=== PATIENT | female | born 1940 | race Caucasian/White ===

== ENCOUNTER → 2017-02-06 | Outpatient (CLI) | payer OTHER ==
[~2017-02-06] MED LIST: ACET-1311 PO; CALC500C3 PO; DIPH-437 PO; LISI-461 PO; LISI-725 PO; MULT-506 PO; ONDA8TAB6 PO; OXYC-57 PO; PSYL48.59 PO; PSYL55.43 PO; SIMV40TA2 PO
[2017-02-06 12:37] LABS: HEMATOCRIT 41.8 % (37-47); MEAN CELL VOLUME 91.7 fL (80-100); MEAN CORPUSCULAR HEMOGLOBIN 29.6 pg (25-34); MEAN CORPUSCULAR HGB CONC 32.3 g/dl (32-36); MEAN PLATELET VOLUME 11.8 fL (7.4-10.4); PLATELET COUNT 277 K/uL (130-400); RED BLOOD COUNT 4.56 M/uL (4.2-5.4); WHITE BLOOD COUNT 6.66 K/uL (4.8-10.8)
[2017-02-06 13:10] LABS: CALCIUM 10.4 mg/dl (8.5-10.1)
[2017-02-06 13:12] LABS: ALT/SGPT 21 U/L (12-78); AST/SGOT 18 U/L (15-37); BLOOD UREA NITROGEN 19 mg/dl (7-18); BUN/CREATININE RATIO 24.1 (10-20); CARBON DIOXIDE 28 mmol/L (21-32); CHLORIDE 100 mmol/L (98-107); CHOLESTEROL 233 mg/dl (0-200); CREATININE 0.79 mg/dl (0.60-1.20); GLUCOSE 87 mg/dl (70-99); SODIUM 136 mmol/L (136-145); TRIGLYCERIDES 217 mg/dl (0-150); VERY LOW DENSITY LIPOPROT CALC 43 mg/dl
[2017-02-06 13:18] LABS: ALB/GLOB RATIO 1.2 (0.9-2); ALKALINE PHOSPHATASE 77 U/L (45-117); CHOLESTEROL/HDL RATIO 3.2; HDL CHOLESTEROL 73 mg/dl; LDL CHOLESTEROL CALCULATED 117 mg/dl
== END | disposition home or self-care (01) ==
LOC: C.LABBFT 08:13
PROVIDERS: ATTEND Physician Assistant Medical
DX: E78.00 Pure hypercholesterolemia, unspecified (principal)

== ENCOUNTER → 2017-04-14 | Outpatient (CLI) | payer OTHER ==
[~2017-04-14] MED LIST changes: -LISI-725 PO; -MULT-506 PO; -ONDA8TAB6 PO; -OXYC-57 PO; -PSYL48.59 PO
--- NOTE | 2017-04-14 11:14 | DIAGNOSTIC IMAGING REPORT ---
CT OF THE ABDOMEN AND PELVIS WITHOUT CONTRAST CLINICAL HISTORY: Left flank pain. Evaluate for stones. COMPARISON STUDY: CT of the abdomen and pelvis February 02, 2016. TECHNIQUE: Axial images of the abdomen and pelvis were obtained without IV contrast. Images were reviewed in the axial, sagittal, and coronal planes. A dose lowering technique was utilized adhering to the principles of ALARA. FINDINGS: A few small right middle lobe and right lower lobe nodules are unchanged since CT of July 13, 2009. These are benign given stability. No ureteral, ureteral or bladder calculi are present. A few water attenuation hepatic lesions as well as a water attenuation left renal lesion were shown to represent cysts on prior contrast enhanced exams. There is no hydronephrosis or hydroureter. There are several left-sided parapelvic cysts. No biliary or pancreatic ductal dilatation is present. There is no evidence for a bowel obstruction. This extensive colonic diverticulosis, most pronounced within the sigmoid colon. There is moderate wall thickening of the splenic flexure of the colon and proximal to mid descending colon with mild pericolonic infiltration. There is no free air or abscess. There are associated colonic diverticula. There is a small amount of fluid within the pelvis. Suspected uterine fibroids are again noted. There is extensive atherosclerotic plaque of the abdominal aorta which is normal in caliber. No pneumatosis, free air or portal venous gas is present. IMPRESSION: 1. Moderate colonic wall thickening of the splenic flexure and proximal descending colon with mild pericolonic infiltration. The findings could reflect acute diverticulitis or a nonspecific colitis which could be infectious or ischemic in etiology. No free air or abscess. Trace fluid within the pelvis. 2. No urinary calculi or hydronephrosis. 3. Hepatic and left renal cysts. Electronically signed by: Santo Yoder M.D. 04/14/2017 11:13 AM Dictated Date/Time: 04/14/2017 10:51 AM
== END | disposition home or self-care (01) ==
LOC: C.CTS 10:21
PROVIDERS: ATTEND Physician Assistant Medical
DX: R10.9 Unspecified abdominal pain (principal); N28.1 Cyst of kidney, acquired

== ENCOUNTER → 2017-04-25 | Outpatient (CLI) | payer OTHER | END | disposition home or self-care (01) | LOC: C.LABBFT 08:18 | PROVIDERS: ATTEND Physician Assistant Medical | DX: R19.7 Diarrhea, unspecified (principal) ==

== ENCOUNTER → 2017-05-11 | Outpatient (CLI) | payer OTHER ==
--- NOTE | 2017-05-11 08:45 | DIAGNOSTIC IMAGING REPORT ---
CHEST 2 VIEWS ROUTINE CLINICAL HISTORY: R06.09 Dyspnea on [id number] COMPARISON STUDY: 02/12/2016 FINDINGS: The bones soft tissues and hemidiaphragms are normal. The cardiomediastinal silhouette is normal. The lungs are clear. The pulmonary vasculature is normal. IMPRESSION: Negative chest. The above report was generated using voice recognition software. It may contain grammatical, syntax or spelling errors. Electronically signed by: Tom Marshall M.D. 05/11/2017 8:44 AM Dictated Date/Time: 05/11/2017 8:44 AM
== END | disposition home or self-care (01) ==
LOC: C.RAD1850 08:15
PROVIDERS: ATTEND Internal Medicine
DX: R06.09 Other forms of dyspnea (principal)

== ENCOUNTER → 2017-05-11 | Outpatient (CLI) | payer OTHER ==
[2017-05-11 12:29] LABS: BASO % 0.4 %; BASO ABS # 0.02 K/uL (0-0.2); COMPLETE YES; EOS % 2.3 %; HEMATOCRIT 37.6 % (37-47); IG% 0.2 %; LYMPH % 28.5 %; LYMPH ABS # 1.48 K/uL (1.2-3.4); MEAN CORPUSCULAR HEMOGLOBIN 29.8 pg (25-34); MEAN CORPUSCULAR HGB CONC 32.7 g/dl (32-36); MEAN PLATELET VOLUME 11.4 fL (7.4-10.4); MONO % 9.6 %; PLATELET COUNT 250 K/uL (130-400); RED BLOOD COUNT 4.13 M/uL (4.2-5.4)
== END | disposition home or self-care (01) ==
LOC: C.LABBFT 07:30
PROVIDERS: ATTEND Internal Medicine
DX: R06.09 Other forms of dyspnea (principal)

== ENCOUNTER 2017-07-23 10:10 | Inpatient (IN) | payer OTHER ==
[~2017-07-23] VITALS: Ht 149.9 cm; Wt 70.7 kg
[2017-07-23] MEDS ORDERED: LISI-725 PO (10:34)
[2017-07-23] MEDS ORDERED: MULT-506 PO (10:34)
[2017-07-23] MEDS ORDERED: PSYL48.59 PO (10:34)
[2017-07-23] MEDS ORDERED: ONDANSETRON INJ 2 MG/ML 2 ML VIAL IV STA (10:43)
[2017-07-23] MEDS: MoRPHine SULFATE 4 MG/ML 1 ML CARP\\VIAL IV PRN ×2 (11:03→11:43)
--- NOTE | 2017-07-23 11:17 | DIAGNOSTIC IMAGING REPORT ---
LEFT SHOULDER 2 VIEWS CLINICAL HISTORY: Fall with left shoulder pain. FINDINGS: 2 views of the left shoulder are obtained. No prior studies are available for comparison at the time of dictation. The skeletal structures are osteopenic. There is an impacted fracture of the left humeral neck with a large distracted fragment of the humeral head. No dislocation is seen. Productive degenerative change is noted at the acromioclavicular joint. Overlying soft tissue edema is identified. The left lung parenchyma is clear as imaged. There is atherosclerotic calcification of the thoracic aorta. IMPRESSION: Osteopenia with an impacted fracture of the humeral neck and a large distracted fragment of the humeral head. Electronically signed by: Bennie Hutson M.D. 07/23/2017 11:16 AM Dictated Date/Time: 07/23/2017 11:14 AM
[2017-07-23] MEDS ORDERED: SODIUM CHLORIDE 0.9% 1000ML 1,000 ML IV STA (11:41)
[2017-07-23] MEDS ORDERED: MAGNESIUM HYDROXIDE SUSP 30 ML UDC PO PRN (12:30)
[2017-07-23] MEDS ORDERED: ZOLPIDEM TARTRATE 5 MG TAB PO PRN (12:30)
[2017-07-23] MEDS ORDERED: ALUMINUM/MAGNESIUM SUSP 30 ML UDC PO PRN (12:30)
--- NOTE | 2017-07-23 12:42 | HISTORY & PHYSICAL EXAMINATION ---
DATE OF ADMISSION: 07/23/2017 HISTORY OF PRESENT ILLNESS: A 77-year-old female presents with acute pain and dysfunction, left shoulder after a fall. Seen in the Emergency Room at [facility] and documented a displaced left proximal humerus fracture. PAST MEDICAL HISTORY: Hypertension, peptic ulcer disease, hyperlipidemia. She has a known history of heart murmur. PAST SURGICAL HISTORY: Bilateral knee replacements. FAMILY HISTORY: Her parents . Father had CAD and ND. Brother with Down syndrome. SOCIAL HISTORY: She lives with her at home. She is retired. ALLERGIES: ASPIRIN, RELATED TO RISK FOR BLEEDING ULCER, RANITIDINE, TETRACYCLINE. HOME MEDICATIONS: Acetaminophen q. 4 hours p.r.n., diphenhydramine 500 mg/25 mg 1 p.o. at bedtime p.r.n. sleep, calcium carbonate 500 mg p.r.n. heartburn, lisinopril 20 mg tab q.a.m., multivitamin 1 daily, Metamucil 1 teaspoon p.r.n. constipation, Zocor 40 mg q.p.m. REVIEW OF SYSTEMS: Noncontributory. PHYSICAL EXAMINATION: EXTREMITIES: Demonstrates that she has swelling in her left shoulder. No ecchymosis. Significant pain with any range of motion of the left shoulder. NEUROLOGICAL: Her distal neurological exam, left upper extremity is all intact including intact radial pulse and neuromotor exam. She has no other extremity trauma. HEAD AND NECK: Atraumatic. Cranial nerves intact. No tenderness in the C-spine. HEART: Has a regular rate and rhythm, but she does have a systolic murmur grade 2. ABDOMEN: Benign, soft, nontender. Normal bowel sounds. X-rays left shoulder demonstrates a head splitting, displaced left proximal humerus fracture. She has a large subacromial spur off the acromion. With extensive spurring like this it is typical that the patient will have a chronic rotator cuff tear. ASSESSMENT: Head splitting left proximal humerus fracture likely preexisting chronic rotator cuff tear. PLAN: CT scan to further identify fracture pattern and plan is to proceed with a fracture reverse total shoulder replacement with repair of the tuberosities and autograft bone grafting of the tuberosities as part of the procedure. We assessed risks and benefits. The patient was consented for procedure. This will likely be performed pending medical clearance tomorrow afternoon or Monday.
[2017-07-23 12:56] LABS: PROTHROMBIN TIME (PATIENT) 10.5 SECONDS (9.0-12.0)
[2017-07-23 13:08] LABS: CALCIUM 10.2 mg/dl (8.5-10.1); CREATININE 0.79 mg/dl (0.60-1.20); POTASSIUM 3.6 mmol/L (3.5-5.1)
--- NOTE | 2017-07-23 13:17 | DIAGNOSTIC IMAGING REPORT ---
SINGLE VIEW CHEST CLINICAL HISTORY: Generalized weakness. Preoperative examination. Humeral fracture. FINDINGS: An AP, portable, upright chest radiograph is compared to study dated 05/11/2017. The examination is degraded by portable technique and patient rotation. The cardiomediastinal silhouette is unremarkable. There is atherosclerotic calcification of the thoracic ureter. Chronic interstitial thickening is similar to previous. There are low lung volumes. No airspace consolidation, large pleural effusion, or pneumothorax is seen. The skeletal structures are osteopenic. A left humeral fracture is partially imaged. Degenerative change and scoliosis are seen in the thoracic spine. IMPRESSION: 1. No active disease in the chest. 2. A left humeral fracture is again seen. Electronically signed by: Bennie Hutson M.D. 07/23/2017 1:16 PM Dictated Date/Time: 07/23/2017 1:15 PM
[2017-07-23 13:18] LABS: THYROID STIMULATING HORMONE 1.29 uIu/ml (0.300-4.500)
[2017-07-23 13:33] LABS: BASO % 0.1 %; BASO ABS # 0.02 K/uL (0-0.2); COMPLETE YES; EOS % 0.1 %; HEMATOCRIT 37.6 % (37-47); IG% 0.3 %; LYMPH % 6.1 %; LYMPH ABS # 0.92 K/uL (1.2-3.4); MEAN CORPUSCULAR HEMOGLOBIN 30.6 pg (25-34); MEAN PLATELET VOLUME 11.4 fL (7.4-10.4); MONO % 4.6 %; NEUT % 88.8 %; PLATELET COUNT 255 K/uL (130-400); RED BLOOD COUNT 4.18 M/uL (4.2-5.4); WHITE BLOOD COUNT 15.07 K/uL (4.8-10.8)
[2017-07-23 13:35] VITALS: BP 157/68; PULSE 70; TEMP 37.3; O2SAT 100; Ht 149.9 cm; Wt 70.7 kg
--- NOTE | 2017-07-23 13:39 | DIAGNOSTIC IMAGING REPORT ---
CT SCAN OF THE LEFT SHOULDER WITHOUT IV CONTRAST: CLINICAL HISTORY: Left humeral fracture. COMPARISON STUDY: Radiographs of the left shoulder dated 07/23/2017. TECHNIQUE: CT scan of the left shoulder is performed from the lower neck to the humeral shaft. Images are reviewed in the axial, sagittal, and coronal planes. IV contrast was not administered for this examination. 3-D reformats are created and assessed. A dose lowering technique was utilized adhering to the principles of ALARA. CT DOSE: 294.81 mGy.cm FINDINGS: The skeletal structures are osteopenic. There is an impacted fracture of the left humeral neck, as well as a comminuted fracture of the humeral head. There is hemorrhage around the humeral head fragments, with large posteriorly distracted fragments involving the greater tuberosity. There is mild inferior subluxation of the humeral head without clear evidence of dislocation. No additional fracture is seen. The scapula appears intact. Productive degenerative change is identified at the acromioclavicular joint. Soft tissue edema is seen overlying the fracture. No intramuscular hematoma is identified. No left axillary adenopathy is seen. IMPRESSION: Osteopenia with an impacted and comminuted fracture involving the left humeral head and neck as above with distracted fragments. See discussion. Dictated: 07/23/2017 1:03 PM Transcribed: 07/23/2017 1:39 PM Iban Electronically signed by: Bennie Hutson M.D. 07/23/2017 1:42 PM Dictated Date/Time: 07/23/2017 1:03 PM
[2017-07-23] MEDS ORDERED: HydrALAZINE HCL 20 MG/ML VIAL IV. PRN (13:45)
--- NOTE | 2017-07-23 13:51 | Medical Consult ---
Consultation Date of Consultation: Jul 23, 2017. Attending Physician: Mike Leonard M.D. Reason for Consultation: Perop clearance History of Present Illness Patient is a 77 y/o female, with PMHx of heart murmur, HTN, HLD, and h/o PUD, who was admitted by orthopedics service due to a fall resulting in L proximal humerus fracture. The hospitalist team was consulted for preop clearance. Patient states she was locking her door this AM before heading to [facility] when she either tripped over her feet or the carpet and landed on her L shoulder. She denies head injury. She denies lightheadedness/dizziness, syncope or LOC- she states she remembers the entire event. Currently her pain is well controlled after receiving IV Morphine- states pain is 5/10. She admits to h/o heart murmur since the age of 8, but denies any other cardiac history. Denies h/ o CAD, SC, CHF, TIA, CVA, PE, or DVT. She denies h/o DM. Patient denies any fever, chills, sweats, lightheadedness, dizziness, vision changes, CP, palpitations, edema, SOB, wheezing, cough, abdominal pain, nausea, vomiting, diarrhea, urinary symptoms, melena, numbness/tingling, weakness, anxiety/ depression, active bleeding, or new skin discoloration/changes. Past Medical/Surgical History Past medical history: HTN HLD h/o PUD heart murmur Surgical history: Bilateral knee replacement Family History Father- CAD, SC Brother- Down syndrome Social History Smoking Status: Former Smoker Drug Use: none Marital Status: Housing Status: lives with family Occupation Status: retired Allergies Coded Allergies: Ranitidine (Verified Allergy, Unknown, `, 07/23/17) Tetracycline (Verified Allergy, Unknown, `, 07/23/17) Aspirin (Verified Adverse Reaction, Mild, ULCERS, 07/23/17) PATIENT SAYS SHE CANNOT TAKE THIS BECAUSE SHE HAS PERIPHERAL BLEEDING ULCERS Home Medications Current Inpatient Medications Medications (Trade) Dose Ordered Sig/Alex Route Start Time Stop Time Status Last Admin Dose Admin Morphine Sulfate (MoRPHine SULFATE INJ) 4 mg Q10M PRN IV 07/23/17 10:45 08/06/17 10:44 07/23/17 11:43 4 MG Sodium Chloride 1,000 ml @ 125 mls/hr Q8H STAT IV 07/23/17 11:41 07/23/17 19:40 Oxycodone/ Acetaminophen (Percocet 5-325mg Tab) `1-2 TABS FOR PAIN `1 TAB... Q4H PRN PO 07/23/17 12:30 08/06/17 12:29 Zolpidem Tartrate (Ambien Tab) 5 mg HSZ PRN PO 07/23/17 12:30 08/22/17 12:29 Metoclopramide HCl (Reglan Inj) 10 mg Q6H PRN IV 07/23/17 12:30 08/22/17 12:29 Ondansetron HCl (Zofran Inj) 4 mg Q6H PRN IV 07/23/17 12:30 08/22/17 12:29 Al Hydroxide/Mg Hydroxide (Maalox Susp) 30 ml Q6H PRN PO 07/23/17 12:30 08/22/17 12:29 Docusate Sodium (coLACE CAP) 100 mg BID PO 07/23/17 21:00 08/22/17 20:59 UNV Pantoprazole Sodium (Protonix Tab) 40 mg QAM PO 07/24/17 09:00 08/23/17 08:59 UNV Magnesium Hydroxide (Milk Of Magnesia Susp) 30 ml Q6H PRN PO 07/23/17 12:30 08/22/17 12:29 Dextrose/Sodium Chloride 1,000 ml @ 15 mls/hr Q24H IV 07/23/17 12:21 08/22/17 12:20 UNV Cefazolin Sodium 1000 mg/Dextrose 55 ml @ 100 mls/hr PREOP IV 07/24/17 06:00 07/24/17 06:32 UNV Lisinopril (Zestril Tab) 20 mg QAM PO 07/24/17 09:00 08/23/17 08:59 UNV Multivitamins (Multivitamin Tab) 1 tab DAILY PO 07/24/17 09:00 08/23/17 08:59 UNV Simvastatin (Zocor Tab) 40 mg QPM PO 07/23/17 21:00 08/22/17 20:59 UNV Current Inpatient Medications Current Inpatient Medications Medications (Trade) Dose Ordered Sig/Alex Route Start Time Stop Time Status Last Admin Dose Admin Morphine Sulfate (MoRPHine SULFATE INJ) 4 mg Q10M PRN IV 07/23/17 10:45 08/06/17 10:44 07/23/17 11:43 4 MG Sodium Chloride 1,000 ml @ 125 mls/hr Q8H STAT IV 07/23/17 11:41 07/23/17 19:40 Oxycodone/ Acetaminophen (Percocet 5-325mg Tab) `1-2 TABS FOR PAIN `1 TAB... Q4H PRN PO 07/23/17 12:30 08/06/17 12:29 Zolpidem Tartrate (Ambien Tab) 5 mg HSZ PRN PO 07/23/17 12:30 08/22/17 12:29 Metoclopramide HCl (Reglan Inj) 10 mg Q6H PRN IV 07/23/17 12:30 08/22/17 12:29 Ondansetron HCl (Zofran Inj) 4 mg Q6H PRN IV 07/23/17 12:30 08/22/17 12:29 Al Hydroxide/Mg Hydroxide (Maalox Susp) 30 ml Q6H PRN PO 07/23/17 12:30 08/22/17 12:29 Docusate Sodium (coLACE CAP) 100 mg BID PO 07/23/17 21:00 08/22/17 20:59 UNV Pantoprazole Sodium (Protonix Tab) 40 mg QAM PO 07/24/17 09:00 08/23/17 08:59 UNV Magnesium Hydroxide (Milk Of Magnesia Susp) 30 ml Q6H PRN PO 07/23/17 12:30 08/22/17 12:29 Dextrose/Sodium Chloride 1,000 ml @ 15 mls/hr Q24H IV 07/23/17 12:21 08/22/17 12:20 UNV Cefazolin Sodium 1000 mg/Dextrose 55 ml @ 100 mls/hr PREOP IV 07/24/17 06:00 07/24/17 06:32 UNV Lisinopril (Zestril Tab) 20 mg QAM PO 07/24/17 09:00 08/23/17 08:59 UNV Multivitamins (Multivitamin Tab) 1 tab DAILY PO 07/24/17 09:00 08/23/17 08:59 UNV Simvastatin (Zocor Tab) 40 mg QPM PO 07/23/17 21:00 08/22/17 20:59 UNV Physical Exam Date Time Temp Pulse Resp B/P (MAP) Pulse Ox O2 Delivery O2 Flow Rate FiO2 07/23/17 13:19 74 18 143/67 100 07/23/17 12:30 82 16 160/60 99 Room Air 07/23/17 11:52 100 Room Air 07/23/17 11:04 100 Room Air 07/23/17 10:26 36.2 79 20 142/79 100 Room Air General Appearance: no apparent distress Head: normocephalic, atraumatic Eyes: normal inspection, PERRL ENT: hearing grossly normal Neck: supple Respiratory/Chest: lungs clear, no respiratory distress, no accessory muscle use Cardiovascular: regular rate, rhythm, + systolic murmur Abdomen/GI: normal bowel sounds, non tender, soft Back: normal inspection Extremities/Musculoskelatal: no calf tenderness, no pedal edema, + pertinent finding (L arm in sling ) Neurologic/Psych: alert, normal mood/affect, oriented x 3 Skin: normal color, warm/dry, no rash Laboratory Results Last 24 Hours Test 07/23/17 12:27 07/23/17 12:36 White Blood Count 15.07 K/uL Red Blood Count 4.18 M/uL Hemoglobin 12.8 g/dL Hematocrit 37.6 % Mean Corpuscular Volume 90.0 fL Mean Corpuscular Hemoglobin 30.6 pg Mean Corpuscular Hemoglobin Concent 34.0 g/dl Platelet Count 255 K/uL Mean Platelet Volume 11.4 fL Neutrophils (%) (Auto) 88.8 % Lymphocytes (%) (Auto) 6.1 % Monocytes (%) (Auto) 4.6 % Eosinophils (%) (Auto) 0.1 % Basophils (%) (Auto) 0.1 % Neutrophils # (Auto) 13.38 K/uL Lymphocytes # (Auto) 0.92 K/uL Monocytes # (Auto) 0.70 K/uL Eosinophils # (Auto) 0.01 K/uL Basophils # (Auto) 0.02 K/uL RDW Standard Deviation 46.7 fL RDW Coefficient of Variation 14.2 % Immature Granulocyte % (Auto) 0.3 % Immature Granulocyte # (Auto) 0.04 K/uL Sodium Level 137 mmol/L Potassium Level 3.6 mmol/L Chloride Level 99 mmol/L Carbon Dioxide Level 25 mmol/L Anion Gap 13.0 mmol/L Blood Urea Nitrogen 15 mg/dl Creatinine 0.79 mg/dl Est Creatinine Clear Calc Drug Dose 51.0 ml/min Estimated GFR () 83.7 Estimated GFR (Non- 72.2 BUN/Creatinine Ratio 19.0 Random Glucose 101 mg/dl Calcium Level 10.2 mg/dl Total Bilirubin 0.4 mg/dl Direct Bilirubin 0.1 mg/dl Aspartate Amino Transf (AST/SGOT) 18 U/L Alanine Aminotransferase (ALT/SGPT) 18 U/L Alkaline Phosphatase 89 U/L Total Protein 7.3 gm/dl Albumin 4.3 gm/dl Thyroid Stimulating Hormone (TSH) 1.290 uIu/ml Prothrombin Time 10.5 SECONDS Prothromb Time International Ratio 1.0 Assessment & Plan Patient is a 77 y/o female, with PMHx of heart murmur, HTN, HLD, and PUD, who was admitted by orthopedics service due to a fall resulting in L proximal humerus fracture. The hospitalist team was consulted for preop clearance. L proximal humerus fracture: - Management as per orthopedics- planning for surgery on 07/24 or 07/25 - Leukocytosis, likely reactive- no s/s of infection, UA pending- continue to follow CBC - Check Vitamin D level - NPO after midnight - RCRI 0%- minimal cardiovascular risk, no further CV workup indicated HTN: - Hold Lisinopril 20 mg daily pending postop PRP - Hydralazine 10 mg IV PRN sbp >180 or dbp >100 HLD: Continue Zocor 40 mg daily GI prophylaxis: Protonix 40 mg daily DVT prophylaxis: No chemical anticoagulation due to upcoming procedure Code Status: LEVEL I, FULL Dispo: Discharge as per primary team Thank you for this consultation. We will continue to follow throughout hospital stay. Reviewed: Pt Seen/Exam by Me History Physician Crew Car Driver Supervision Note: I interviewed and examined the patient. Discussed with MODESTA Agosto and agree with findings and plan as documented in the note. Any exceptions or clarifications are listed here: Patient admitted with a left humerus fracture after a mechanical fall. She is a history of hypertension and hyperlipidemia as well as PUD. She denies any history of cardiac disease other than a benign heart murmur. She had an echocardiogram 1 year ago that showed chronic diastolic dysfunction, but was otherwise okay. She can climb up at least 1 flight of stairs without any chest pain or shortness of breath. Vitals reviewed No acute distress, alert awake oriented 3 Regular rate and rhythm, 1/6 systolic murmur heard at the right upper sternal border Lungs clear to auscultation bilaterally, no wheezes crackles or rhonchi Abdomen positive bowel sounds soft nontender nondistended Extremities left upper extremity in a shoulder sling with normal cap refill in the left fingers, lower extremities with no edema, 2 posterior cells pedis pulses bilaterally Skin no rashes Radiology results reviewed ECG with normal sinus rhythm and nonspecific ST changes in inferior leads not significantly changed from previous 77-year-old female here with mechanical fall resulting in left humerus fracture. She can easily achieve at least 4 METS and has no significant cardiac history. She is therefore at average perioperative cardiovascular risk for this intermediate risk surgery and should therefore proceed with surgery as planned. -Holding lisinopril until renal function checked post operatively as well as in case of hypotension in the perioperative period -Follow CBC postoperatively Documented By: Ghazal Gilbert
[2017-07-23] MEDS: D5W AND 1/2NSS 1,000 ML IV SCH (14:12)
[2017-07-23 15:16] VITALS: BP 144/70; PULSE 80; TEMP 36.8; O2SAT 100
[2017-07-23 16:57] LABS: URINE APPEARANCE CLEAR (CLEAR); URINE BILIRUBIN NEG (NEG); URINE COLOR DK YELLOW; URINE NITRITE NEG (NEG); URINE PH >= 9.0 (4.5-7.5); URINE SPECIFIC GRAVITY 1.018 (1.000-1.030); UROBILINOGEN NEG (NEG)
[2017-07-23 16:59] LABS: MANUAL MICROSCOPIC REQUIRED? NO; REVIEW REQ? NO
--- NOTE | 2017-07-23 17:11 | Anesthesiology Progress Note ---
Anesthesia Progress Note Date of Service Jul 23, 2017. Progress Notes The patient is a 77 y/o female scheduled for a L reverse total shoulder tomorrow due to L humerus fracture. The patient tripped and fell with no LOC or syncope. PMH includes HTN, dyslipidemia, diastolic dysfunction type 1, GERD , and peptic ulcer disease, and arthritis s/p bilateral TKAs. She has no chest pain or SOB. Her CXR shows NAD of the lungs with L humerus fx. EKG shows NSR with nonspecific ST abnormality. Her echo from 2016 shows EF 75% with type 1 diastolic dysfunction and L atrial dilation. Labs are significant for WBC 15. On exam, she has good neck extension and is a MP 2. She has multiple chipped teeth. Lungs are clear. Heart is RRR with a holosystolic murmur. Carotids are negative for bruits. Her left arm is in a sling. The patient was consented for a L interscalene block as well as general anesthesia. She was counseled to remain NPO after midnight.
--- NOTE | 2017-07-23 18:29 | EMERGENCY ROOM VISIT NOTE ---
History Report prepared by Lay: Jessica Myers Under the Supervision of: Dr. Campos Colmenares M.D. First contact with patient: 10:33 Chief Complaint: SHOULDER PAIN Stated Complaint: FELL,LEFT SHOULDER INJURY/PAIN History of Present Illness The patient is a 77 year old female who presents to the Emergency Room with complaints of constant left shoulder pain starting an hour ago. The patient states that she tripped and fell. She reports that she landed directly on her left shoulder. She states that the pain was almost immediate. She states that the pain is worse with movement. The patient reports that originally the pain was just in her shoulder and has radiated down into her hand. The patient denies hitting her head. Pt denies LOC, headache, visual changes, neck pain, chest pain, breathing difficulties, nausea, vomiting, abdominal pain, back pain, numbness, weakness, open wounds, active bleeding, or other complaints. Source of History: patient Onset: an hour ago Position: shoulder (left) Quality: other (radiating) Timing: constant Modifying Factors (Worsening): movement Note: The patient complains of the pain radiating to her hand. Review of Systems See HPI for pertinent positives and negatives. A total of ten systems were reviewed and were otherwise negative. Past Medical & Surgical Medical Problems: (1) Abnormal EKG (2) Humerus head fracture (3) Hyperlipidemia (4) Hypertension (5) Hyponatremia Surgical Problems: (1) S/P knee replacement Family History No pertinent family history Social History Smoking Status: Former Smoker Drug Use: none Marital Status: Housing Status: lives with family Occupation Status: retired Current/Historical Medications Scheduled Lisinopril (Zestril), 20 MG PO QAM Multivitamin (Multivitamin), 1 TAB PO DAILY Simvastatin (Zocor), 40 MG PO QPM Scheduled PRN Acetaminophen (Tylenol), 325 MG PO Q4 PRN for Pain Acetaminophen/Diphenhydramine (Tylenol Pm), 1 TAB PO HS PRN for Pain Calcium Carbonate (Tums), 500 PO UD PRN for HEARTBURN Psyllium (Metamucil), 1 TSP PO UD PRN for Constipation Allergies Coded Allergies: Ranitidine (Verified Allergy, Unknown, `, 07/23/17) Tetracycline (Verified Allergy, Unknown, `, 07/23/17) Aspirin (Verified Adverse Reaction, Mild, ULCERS, 07/23/17) PATIENT SAYS SHE CANNOT TAKE THIS BECAUSE SHE HAS PERIPHERAL BLEEDING ULCERS Physical Exam Vital Signs Date Time Temp Pulse Resp B/P (MAP) Pulse Ox O2 Delivery O2 Flow Rate FiO2 07/23/17 12:30 82 16 160/60 99 Room Air 07/23/17 11:52 100 Room Air 07/23/17 11:04 100 Room Air 07/23/17 10:26 36.2 79 20 142/79 100 Room Air Physical Exam GENERAL: Awake, alert, well-appearing, in no distress, uncomfortable appearing. HENT: Normocephalic, atraumatic. Oropharynx unremarkable. EYES: Normal conjunctiva. Sclera non-icteric. NECK: Supple. No nuchal rigidity. FROM. No JVD. RESPIRATORY: Clear to auscultation. CARDIAC: Regular rate, normal rhythm. Extremities warm and well perfused. Pulses equal. ABDOMEN: Soft, non-distended. No tenderness to palpation. No rebound or guarding. No masses. RECTAL: Deferred. MUSCULOSKELETAL: Chest examination reveals no tenderness. The back is symmetrical on inspection without obvious abnormality. There is no CVA tenderness to palpation. Tenderness in the deltoid area. ROM limited secondary to pain. No open wounds. Moderate swelling in the deltoid region. Left elbow, forearm, and hand are atraumatic. LOWER EXTREMITIES: Calves are equal size bilaterally and non-tender. No edema. No discoloration. NEURO: Normal sensorium. No sensory or motor deficits noted. SKIN: No rash or jaundice noted. Medical Decision & Procedures ER Provider Diagnostic Interpretation: Radiology results as stated below per my review and radiologist interpretation: LEFT SHOULDER 2 VIEWS CLINICAL HISTORY: Fall with left shoulder pain. FINDINGS: 2 views of the left shoulder are obtained. No prior studies are available for comparison at the time of dictation. The skeletal structures are osteopenic. There is an impacted fracture of the left humeral neck with a large distracted fragment of the humeral head. No dislocation is seen. Productive degenerative change is noted at the acromioclavicular joint. Overlying soft tissue edema is identified. The left lung parenchyma is clear as imaged. There is atherosclerotic calcification of the thoracic aorta. IMPRESSION: Osteopenia with an impacted fracture of the humeral neck and a large distracted fragment of the humeral head. Electronically signed by: Bennie Hutson M.D. 07/23/2017 11:16 AM Dictated Date/Time: 07/23/2017 11:14 AM SINGLE VIEW CHEST CLINICAL HISTORY: Generalized weakness. Preoperative examination. Humeral fracture. FINDINGS: An AP, portable, upright chest radiograph is compared to study dated 05/11/2017. The examination is degraded by portable technique and patient rotation. The cardiomediastinal silhouette is unremarkable. There is atherosclerotic calcification of the thoracic ureter. Chronic interstitial thickening is similar to previous. There are low lung volumes. No airspace consolidation, large pleural effusion, or pneumothorax is seen. The skeletal structures are osteopenic. A left humeral fracture is partially imaged. Degenerative change and scoliosis are seen in the thoracic spine. IMPRESSION: 1. No active disease in the chest. 2. A left humeral fracture is again seen. Electronically signed by: Bennie Hutson M.D. 07/23/2017 1:16 PM Dictated Date/Time: 07/23/2017 1:[address] SCAN OF THE LEFT SHOULDER WITHOUT IV CONTRAST: CLINICAL HISTORY: Left humeral fracture. COMPARISON STUDY: Radiographs of the left shoulder dated 07/23/2017. TECHNIQUE: CT scan of the left shoulder is performed from the lower neck to the humeral shaft. Images are reviewed in the axial, sagittal, and coronal planes. IV contrast was not administered for this examination. 3-D reformats are created and assessed. A dose lowering technique was utilized adhering to the principles of ALARA. CT DOSE: 294.81 mGy.cm FINDINGS: The skeletal structures are osteopenic. There is an impacted fracture of the left humeral neck, as well as a comminuted fracture of the humeral head. There is hemorrhage around the humeral head fragments, with large posteriorly distracted fragments involving the greater tuberosity. There is mild inferior subluxation of the humeral head without clear evidence of dislocation. No additional fracture is seen. The scapula appears intact. Productive degenerative change is identified at the acromioclavicular joint. Soft tissue edema is seen overlying the fracture. No intramuscular hematoma is identified. No left axillary adenopathy is seen. IMPRESSION: Osteopenia with an impacted and comminuted fracture involving the left humeral head and neck as above with distracted fragments. See discussion. Dictated: 07/23/2017 1:03 PM Transcribed: 07/23/2017 1:39 PM [facility] Laboratory Results 07/23/17 12:27 Red Blood Count 4.18, Mean Corpuscular Volume 90.0, Mean Corpuscular Hemoglobin 30.6, Mean Corpuscular Hemoglobin Concent 34.0, Mean Platelet Volume 11.4, Neutrophils (%) (Auto) 88.8, Lymphocytes (%) (Auto) 6.1, Monocytes (%) (Auto) 4.6, Eosinophils (%) (Auto) 0.1, Basophils (%) (Auto) 0.1, Neutrophils # (Auto) 13.38, Lymphocytes # (Auto) 0.92, Monocytes # (Auto) 0.70, Eosinophils # (Auto) 0.01, Basophils # (Auto) 0.02 07/23/17 12:27 Test 07/23/17 00:00 07/23/17 12:27 Urine Color DK YELLOW Urine Appearance CLEAR (CLEAR) Urine pH >= 9.0 (4.5-7.5) Urine Specific Page 1.018 (1.000-1.030) Urine Protein NEG (NEG) Urine Glucose (UA) NEG (NEG) Urine Ketones 1+ (NEG) Urine Occult Blood NEG (NEG) Urine Nitrite NEG (NEG) Urine Bilirubin NEG (NEG) Urine Urobilinogen NEG (NEG) Urine Leukocyte Esterase SMALL (NEG) Urine WBC (Auto) 5-10 /hpf (0-5) Urine RBC (Auto) 0-4 /hpf (0-4) Urine Hyaline Casts (Auto) 0 /lpf (0-5) Urine Epithelial Cells (Auto) 10-20 /lpf (0-5) Urine Bacteria (Auto) NEG (NEG) White Blood Count 15.07 K/uL (4.8-10.8) Red Blood Count 4.18 M/uL (4.2-5.4) Hemoglobin 12.8 g/dL (12.0-16.0) Hematocrit 37.6 % (37-47) Mean Corpuscular Volume 90.0 fL (80-100) Mean Corpuscular Hemoglobin 30.6 pg (25-34) Mean Corpuscular Hemoglobin Concent 34.0 g/dl (32-36) Platelet Count 255 K/uL (130-400) Mean Platelet Volume 11.4 fL (7.4-10.4) Neutrophils (%) (Auto) 88.8 % Lymphocytes (%) (Auto) 6.1 % Monocytes (%) (Auto) 4.6 % Eosinophils (%) (Auto) 0.1 % Basophils (%) (Auto) 0.1 % Neutrophils # (Auto) 13.38 K/uL (1.4-6.5) Lymphocytes # (Auto) 0.92 K/uL (1.2-3.4) Monocytes # (Auto) 0.70 K/uL (0.11-0.59) Eosinophils # (Auto) 0.01 K/uL (0-0.5) Basophils # (Auto) 0.02 K/uL (0-0.2) RDW Standard Deviation 46.7 fL (36.4-46.3) RDW Coefficient of Variation 14.2 % (11.5-14.5) Immature Granulocyte % (Auto) 0.3 % Immature Granulocyte # (Auto) 0.04 K/uL (0.00-0.02) Anion Gap 13.0 mmol/L (3-11) Est Creatinine Clear Calc Drug Dose 51.0 ml/min Estimated GFR () 83.7 Estimated GFR (Non- 72.2 BUN/Creatinine Ratio 19.0 (10-20) Calcium Level 10.2 mg/dl (8.5-10.1) Total Bilirubin 0.4 mg/dl (0.2-1) Direct Bilirubin 0.1 mg/dl (0-0.2) Aspartate Amino Transf (AST/SGOT) 18 U/L (15-37) Alanine Aminotransferase (ALT/SGPT) 18 U/L (12-78) Alkaline Phosphatase 89 U/L (45-117) Total Protein 7.3 gm/dl (6.4-8.2) Albumin 4.3 gm/dl (3.4-5.0) Thyroid Stimulating Hormone (TSH) 1.290 uIu/ml (0.300-4.500) Laboratory results reviewed by me Medications Administered Medications (Trade) Dose Ordered Sig/Alex Route Start Time Stop Time Status Last Admin Dose Admin Ondansetron HCl (Zofran Inj) 4 mg NOW STAT IV 07/23/17 10:43 07/23/17 10:45 DC 07/23/17 11:03 4 MG Morphine Sulfate (MoRPHine SULFATE INJ) 4 mg Q10M PRN IV 07/23/17 10:45 07/23/17 13:43 DC 07/23/17 11:43 4 MG ECG Indication: back/shoulder pain Rate (beats per minute): 81 Rhythm: normal sinus Findings: nonspecific-ST abn (Inferior), no ectopy Comparison ECG Date: February 12, 2016 Change: Nonspecific ST abnormality is more pronounced inferiorly. ED Course 1038: The patient was evaluated in room D6. A complete history and physical exam was performed. 1043: Ordered Zofran Inj 4 mg IV. 1045: Ordered Morphine Sulfate 4 mg PRN IV pain. 1130: I reevaluated the patient and updated her on her test results. 1137: Discussed the patient's case with Dr. Leonard. The patient will be evaluated for further treatment and disposition. 1141: Ordered NSS 1000 ml @ 125 mls/hr IV. Medical Decision Prior records reviewed and summarized above. Triage Nursing notes reviewed and agree them. Additional history obtained from family. The patient's history was concerning for traumatic injury. Differential diagnosis: Etiologies such as fracture, dislocation, neurovascular compromise, compartment syndrome, soft tissue injury, as well as others were entertained. Physical examination: Consistent with an isolated left shoulder injury. ER treatment provided: IV Zofran IV morphine Sling On reassessment the patient felt better. Diagnostics interpreted by me: ECG: As above The labs revealed an unremarkable CBC, coags, and chemistry panel. Imaging studies: Xrays and CT scan as above. Consultation: A consultation was placed with the orthopedist, Dr. Leonard. The case was discussed and diagnostics were reviewed. The patient was evaluated in the ER for further treatment. Medication Reconcilliation Current Medication List: was personally reviewed by me Blood Pressure Screening Patient's blood pressure: Elevated blood pressure Blood pressure disposition: Elevated BP felt to be situational Consults Time Called: 1132 Consulting Physician: Dr. Leonard- Orthopedics Returned Call: 1137 Discussed the patient's case with Dr. Leonard. The patient will be evaluated for further treatment and disposition. Impression Primary Impression: Fracture of proximal end of left humerus Scribe Attestation The scribe's documentation has been prepared under my direction and personally reviewed by me in its entirety. I confirm that the note above accurately reflects all work, treatment, procedures, and medical decision making performed by me. Departure Information Dispostion Being Evaluated By Surgeon Olvin Mclean M.D. (PCP) Patient Instructions My [facility]
[2017-07-23 18:30] VITALS: BP 155/77; PULSE 108; TEMP 36.8; O2SAT 100
[2017-07-23 18:35] VITALS: PULSE 80; O2SAT 100
[2017-07-23] MEDS: OXYCODONE/ACETAMINOPHEN 5-325 TAB PO PRN ×2 (19:14→20:21)
[2017-07-23] MEDS: SIMVASTATIN 40 MG TAB PO SCH (20:22)
[2017-07-23] MEDS: DOCUSATE SODIUM 100 MG CAP PO SCH (20:22)
[2017-07-23] MEDS: ONDANSETRON INJ 2 MG/ML 2 ML VIAL IV PRN (20:23)
[2017-07-23 23:30] VITALS: BP 120/65; PULSE 80; TEMP 36.6; O2SAT 98
[2017-07-23] MEDS: METOCLOPRAMIDE HCL INJ 5 MG/ML 2 ML VIAL IV PRN (23:45)
[2017-07-24] VITALS (9 sets, daily range): BP systolic 129–166; BP diastolic 63–80; PULSE 70–100; TEMP 36.1–36.8; O2SAT 94–100
[2017-07-24 05:46] LABS: HEMATOCRIT 32.3 % (37-47); MEAN CELL VOLUME 90.2 fL (80-100); MEAN CORPUSCULAR HEMOGLOBIN 30.2 pg (25-34); MEAN CORPUSCULAR HGB CONC 33.4 g/dl (32-36); MEAN PLATELET VOLUME 10.7 fL (7.4-10.4); PLATELET COUNT 238 K/uL (130-400); RED BLOOD COUNT 3.58 M/uL (4.2-5.4); WHITE BLOOD COUNT 10.04 K/uL (4.8-10.8)
[2017-07-24] MEDS: ONDANSETRON INJ 2 MG/ML 2 ML VIAL IV PRN (05:51)
[2017-07-24] MEDS ORDERED: CEFAZOLIN IV 1,000 MG in DEXTROSE 5% 50ML 50 ML IV SCH (06:00)
[2017-07-24] MEDS ORDERED: CEFAZOLIN 1000MG IV PUSH 5 ML IV SCH (06:00)
[2017-07-24 06:19] LABS: BUN/CREATININE RATIO 20.5 (10-20); CREATININE 0.58 mg/dl (0.60-1.20); POTASSIUM 4.1 mmol/L (3.5-5.1)
[2017-07-24] MEDS: DOCUSATE SODIUM 100 MG CAP PO SCH ×2 (08:29→20:52)
[2017-07-24] MEDS: PANTOprazole SOD 40 MG TAB PO SCH (08:30)
[2017-07-24] MEDS ORDERED: MULTIVITAMIN TAB PO SCH (09:00)
[2017-07-24] MEDS ORDERED: LISINOPRIL 20 MG TAB PO SCH (09:00)
[2017-07-24] MEDS ORDERED: MoRPHine SULFATE 2 MG/ML CARP IV PRN ×2 (10:00→11:00)
[2017-07-24] MEDS: METOCLOPRAMIDE HCL INJ 5 MG/ML 2 ML VIAL IV PRN ×2 (10:05→20:46)
--- NOTE | 2017-07-24 10:13 | Orthopedic Progress Note ---
Orthopedic Progress Note Date of Service Jul 24, 2017. Subjective Reports: complaints (shoulder pain), Denies: chest pain, SOB, nausea / vomiting , light headedness Objective calves soft nontender, N/V intact, capillary refill less than 2 sec., A&O x3 SLING INTACT. MOD ECCHYMOSIS ALONG THE DELTOID. ROM DEFERRED DUE TO FRACTURE. FULL ROM FINGERS/WRIST. N/V INTACT. Date Time Temp Pulse Resp B/P (MAP) Pulse Ox O2 Delivery O2 Flow Rate FiO2 07/24/17 08:04 100 Room Air 07/24/17 07:50 Room Air 07/24/17 07:41 36.5 70 22 142/80 (100) 100 Room Air 07/23/17 23:30 36.6 80 16 120/65 (83) 98 Room Air 07/23/17 23:30 Room Air 07/23/17 18:35 80 100 Room Air 07/23/17 18:30 36.8 108 18 155/77 (103) 100 Room Air 07/23/17 15:55 Room Air 07/23/17 15:16 36.8 80 18 144/70 (94) 100 Room Air 07/23/17 13:35 37.3 70 18 157/68 100 Room Air 07/23/17 13:19 74 18 143/67 100 07/23/17 12:30 82 16 160/60 99 Room Air 07/23/17 11:52 100 Room Air 07/23/17 11:04 100 Room Air 07/23/17 10:26 36.2 79 20 142/79 100 Room Air Laboratory Results 24 Hours: Test 07/23/17 12:27 07/23/17 12:36 07/24/17 05:22 White Blood Count 15.07 K/uL Red Blood Count 4.18 M/uL Hemoglobin 12.8 g/dL 10.8 g/dL Hematocrit 37.6 % 32.3 % Mean Corpuscular Volume 90.0 fL Mean Corpuscular Hemoglobin 30.6 pg Mean Corpuscular Hemoglobin Concent 34.0 g/dl Platelet Count 255 K/uL Mean Platelet Volume 11.4 fL Neutrophils (%) (Auto) 88.8 % Lymphocytes (%) (Auto) 6.1 % Monocytes (%) (Auto) 4.6 % Eosinophils (%) (Auto) 0.1 % Basophils (%) (Auto) 0.1 % Neutrophils # (Auto) 13.38 K/uL Lymphocytes # (Auto) 0.92 K/uL Monocytes # (Auto) 0.70 K/uL Eosinophils # (Auto) 0.01 K/uL Basophils # (Auto) 0.02 K/uL Prothromb Time International Ratio 1.0 Prothrombin Time 10.5 SECONDS Assessment & Plan Assessment: LEFT HUMERUS FRACTURE Plan: CURRENTLY NPO FOR REVERSE TSA TODAY WITH DR. MAHAN PAIN MANAGEMENT- PERCOCET/MORPHINE.
[2017-07-24] MEDS ORDERED: MoRPHine SULFATE 2 MG/ML CARP IV ONE (11:15)
[2017-07-24] MEDS ORDERED: ROPIVACAINE 0.5% 5 MG/ML 30 ML VIAL ONE (12:09)
[2017-07-24] MEDS: D5W AND 1/2NSS 1,000 ML IV SCH (13:30)
--- NOTE | 2017-07-24 14:01 | Hospitalist Progress Note ---
Hospitalist Progress Note Date of Service Jul 24, 2017. (Carrie Agosto ., CANDIDO) Subjective Pt evaluation today including: conversation w/ patient, conversation w/ family ( at bedside ), physical exam, lab review, review of inpatient medication list Voiding: no voiding problems Patient resting in bed. L shoulder pain 610- IV Morphine PRN. NPO for upcoming procedure. Patient denies any fever, chills, sweats, lightheadedness, dizziness, vision changes, CP, palpitations, edema, SOB, wheezing, cough, abdominal pain, nausea, vomiting, diarrhea, urinary symptoms, melena, numbness/tingling, weakness, anxiety/depression, active bleeding, or new skin discoloration/changes. (Carrie Agosto ., JENNYC) Medications Current Inpatient Medications Medications (Trade) Dose Ordered Sig/Alex Route Start Time Stop Time Status Last Admin Dose Admin Oxycodone/ Acetaminophen (Percocet 5-325mg Tab) `1-2 TABS FOR PAIN `1 TAB... Q4H PRN PO 07/23/17 12:30 08/06/17 12:29 07/23/17 20:21 1 TAB Zolpidem Tartrate (Ambien Tab) 5 mg HSZ PRN PO 07/23/17 12:30 08/22/17 12:29 Metoclopramide HCl (Reglan Inj) 10 mg Q6H PRN IV 07/23/17 12:30 08/22/17 12:29 07/24/17 10:05 10 MG Ondansetron HCl (Zofran Inj) 4 mg Q6H PRN IV 07/23/17 12:30 08/22/17 12:29 07/24/17 05:51 4 MG Al Hydroxide/Mg Hydroxide (Maalox Susp) 30 ml Q6H PRN PO 07/23/17 12:30 08/22/17 12:29 Docusate Sodium (coLACE CAP) 100 mg BID PO 07/23/17 21:00 08/22/17 20:59 07/23/17 20:22 100 MG Pantoprazole Sodium (Protonix Tab) 40 mg QAM PO 07/24/17 09:00 08/23/17 08:59 Magnesium Hydroxide (Milk Of Magnesia Susp) 30 ml Q6H PRN PO 07/23/17 12:30 08/22/17 12:29 Dextrose/Sodium Chloride 1,000 ml @ 15 mls/hr Q24H IV 07/23/17 14:00 08/22/17 13:59 07/23/17 14:12 15 MLS/HR Multivitamins (Multivitamin Tab) 1 tab DAILY PO 07/24/17 09:00 08/23/17 08:59 Simvastatin (Zocor Tab) 40 mg QPM PO 07/23/17 21:00 08/22/17 20:59 07/23/17 20:22 40 MG Cefazolin Sodium 5 ml @ 1.667 mls/ min PREOP IV 07/24/17 06:00 07/24/17 18:00 Hydralazine HCl (HydrALAZINE INJ) 10 mg Q6H PRN IV. 07/23/17 13:45 08/22/17 13:44 Morphine Sulfate (MoRPHine SULFATE INJ) 1 mg Q3H PRN IV 07/24/17 10:00 08/07/17 09:59 07/24/17 10:05 1 MG Morphine Sulfate (MoRPHine SULFATE INJ) 2 mg Q3H PRN IV 07/24/17 11:00 08/07/17 10:59 (Carrie Agosto, JENNYC) Objective Vital Signs Date Time Temp Pulse Resp B/P (MAP) Pulse Ox O2 Delivery O2 Flow Rate FiO2 07/24/17 11:48 36.8 72 18 142/70 (94) 99 Room Air 07/24/17 11:10 36.7 07/24/17 08:04 100 Room Air 07/24/17 07:50 Room Air 07/24/17 07:41 36.5 70 22 142/80 (100) 100 Room Air 07/23/17 23:30 36.6 80 16 120/65 (83) 98 Room Air 07/23/17 23:30 Room Air 07/23/17 18:35 80 100 Room Air 07/23/17 18:30 36.8 108 18 155/77 (103) 100 Room Air 07/23/17 15:55 Room Air 07/23/17 15:16 36.8 80 18 144/70 (94) 100 Room Air 07/23/17 13:35 37.3 70 18 157/68 100 Room Air 07/23/17 13:19 74 18 143/67 100 (Carrie Agosto ., PA-C) Physical Exam General Appearance: no apparent distress Eyes: normal inspection, PERRL ENT: hearing grossly normal Neck: supple Respiratory/Chest: lungs clear, no respiratory distress, no accessory muscle use Cardiovascular: regular rate, rhythm, + systolic murmur Abdomen: normal bowel sounds, non tender, soft Extremities: no pedal edema, no calf tenderness, + pertinent finding (L arm in sling ) Neurologic/Psychiatric: alert, normal mood/affect, oriented x 3 Skin: normal color, warm/dry, no rash (Carrie Agosto, MODESTA-C) Laboratory Results Last 24 Hours Test 07/24/17 05:22 White Blood Count 10.04 K/uL Red Blood Count 3.58 M/uL Hemoglobin 10.8 g/dL Hematocrit 32.3 % Mean Corpuscular Volume 90.2 fL Mean Corpuscular Hemoglobin 30.2 pg Mean Corpuscular Hemoglobin Concent 33.4 g/dl RDW Standard Deviation 47.8 fL RDW Coefficient of Variation 14.4 % Platelet Count 238 K/uL Mean Platelet Volume 10.7 fL Sodium Level 130 mmol/L Potassium Level 4.1 mmol/L Chloride Level 98 mmol/L Carbon Dioxide Level 28 mmol/L Anion Gap 4.0 mmol/L Blood Urea Nitrogen 12 mg/dl Creatinine 0.58 mg/dl Est Creatinine Clear Calc Drug Dose 69.5 ml/min Estimated GFR () 103.0 Estimated GFR (Non- 88.9 BUN/Creatinine Ratio 20.5 Random Glucose 102 mg/dl Calcium Level 9.0 mg/dl 25-Hydroxy Vitamin D Total 33.4 ng/ml (Carrie Agosto ., PA-C) Assessment and Plan Patient is a 77 y/o female, with PMHx of heart murmur, HTN, HLD, and PUD, who was admitted by orthopedics service due to a fall resulting in L proximal humerus fracture. The hospitalist team was consulted for preop clearance. L proximal humerus fracture: - Management as per orthopedics- planning for surgery today - Leukocytosis, likely reactive- RESOLVED- no s/s of infection, UA negative- continue to follow CBC - Vitamin D level- 33.4 - Advance diet as tolerated after procedure - RCRI 0%- minimal cardiovascular risk, no further CV workup indicated Hyponatremia at 130, ?secondary to dehydration: - Gentle hydration w/ IVF @ 75 ml/hr - Follow PRP HTN: - Hold Lisinopril 20 mg daily pending postop PRP - Hydralazine 10 mg IV PRN sbp >180 or dbp >100 HLD: Continue Zocor 40 mg daily GI prophylaxis: Protonix 40 mg daily DVT prophylaxis: As per surgical team Code Status: LEVEL I, FULL Dispo: Discharge as per primary team Thank you for this consultation. We will continue to follow throughout hospital stay. (Carrie Agosto, CANDIDO) Reviewed: Pt Seen/Exam by Me (Ghazal Gilbert MD) History Physician [employer] Teller Supervision Note: I interviewed and examined the patient. Discussed with MODESTA Agosto and agree with findings and plan as documented in the note. Any exceptions or clarifications are listed here: Patient admitted with a left humerus fracture after a mechanical fall. She is a history of hypertension and hyperlipidemia as well as PUD. She denies any history of cardiac disease other than a benign heart murmur. She had an echocardiogram 1 year ago that showed chronic diastolic dysfunction, but was otherwise okay. She can climb up at least 1 flight of stairs without any chest pain or shortness of breath. When he saw patient this evening, she had just returned from surgery and was very drowsy. She reported some nausea but was otherwise comfortable. Vitals reviewed No acute distress, drowsy Regular rate and rhythm, 1/6 systolic murmur heard at the right upper sternal border Lungs clear to auscultation bilaterally, no wheezes crackles or rhonchi Abdomen positive bowel sounds soft nontender nondistended Extremities left upper extremity in a shoulder sling 77-year-old female here with mechanical fall resulting in left humerus fracture. -Holding lisinopril until renal function checked post operatively as well as in case of hypotension in the perioperative period -Follow CBC postoperatively Documented By: Ghazal Gilbert (Ghazal Gilbert MD)
[2017-07-24] MEDS ORDERED: BACITRACIN 50000 UNIT VIAL ONE (15:14)
[2017-07-24] MEDS ORDERED: MIDAZOLAM HCL 1 MG/ML 2ML VIAL ONE (15:14)
--- NOTE | 2017-07-24 15:14 | History & Physical Bridge Note ---
H&P Re-Evaluation Bridge Note: I have examined the patient, reviewed the History & Physical and in the interval since the performance of the History & Physical I have noted the following changes of clinical significance: No changes noted
[2017-07-24] MEDS ORDERED: EpHEDrine SULFATE INJ 50 MG/ML AMP IV PRN (15:30)
[2017-07-24] MEDS ORDERED: ONDANSETRON INJ 2 MG/ML 2 ML VIAL IV PRN (15:30)
[2017-07-24] MEDS ORDERED: ATROPINE SULFATE 0.1 MG/ML 5ML SYR IV PRN (15:30)
[2017-07-24] MEDS ORDERED: HYDROmorphone INJ 1 MG/ML SYR IV PRN (15:30)
[2017-07-24] MEDS ORDERED: ROCURONIUM BROMIDE 10 MG/ML 5 ML VIAL IV ONE ×2 (16:30→17:36)
[2017-07-24] MEDS ORDERED: GLYCOPYRROLATE INJ 0.2 MG/ML VIAL ONE (16:30)
[2017-07-24] MEDS ORDERED: DEXAMETHASONE SOD INJ 4 MG/ML VIAL ONE (16:30)
[2017-07-24] MEDS ORDERED: PROPOFOL IV EMULSION 10 MG/ML 20 ML VIAL IV ONE (16:30)
[2017-07-24] MEDS ORDERED: NEOSTIGMINE METHYLSULFATE 5 MG/5 ML SYR ONE (16:30)
[2017-07-24] MEDS ORDERED: EpHEDrine SULFATE 50MG/5ML SYR ONE (16:30)
[2017-07-24] MEDS ORDERED: LIDOCAINE HCL 2% 2 ML VIAL (20MG/ML) ONE (16:30)
[2017-07-24] MEDS ORDERED: ONDANSETRON INJ 2 MG/ML 2 ML VIAL ONE (16:30)
[2017-07-24] MEDS ORDERED: THROMBIN FOR SOLN 20000 UNIT KIT ONE (17:42)
[2017-07-24] MEDS ORDERED: FENTANYL CITRATE INJ 50 MCG/1 ML 2 ML VIAL ONE (18:28)
--- NOTE | 2017-07-24 18:41 | [facility] Post Operative Brief Note ---
Immediate Operative Summary Operative Date Jul 24, 2017. Pre-Operative Diagnosis Head splitting left proximal humerus fracture likely preexisting chronic rotator cuff tear. Post-Operative Diagnosis Same as preoperative diagnosis,CHRONIC ROTATOR CUFF TEAR Procedure(s) Performed Left Reversed Total Shoulder Replacement, Repair of Tuberosity with Bonegraft Autograft-Left Shoulder Surgeon Dr. Leonard Furnace Packer Surgeon(s) Pascale Pearl PA-C Estimated Blood Loss 100ml Findings as above Specimens a. left humeral head Drains 2 hemovac Anesthesia general and regional Complication(s) None Disposition Recovery Room / PACU
[2017-07-24] MEDS ORDERED: ALUMINUM/MAGNESIUM SUSP 30 ML UDC PO PRN (19:00)
--- NOTE | 2017-07-24 19:19 | Anesthesiology Progress Note ---
Anesthesia Post Op Note Date & Time Jul 24, 2017 at 19:19 Vital Signs Pain Intensity: 0 Vital Signs Past 12 Hours Date Time Temp Pulse Resp B/P (MAP) Pulse Ox O2 Delivery O2 Flow Rate FiO2 07/24/17 19:15 80 17 167/51 98 Room Air 07/24/17 19:05 73 24 175/66 97 Room Air 07/24/17 18:55 66 15 178/61 98 Room Air 07/24/17 18:46 36.0 64 12 152/69 100 Oxymask 10 07/24/17 11:48 36.8 72 18 142/70 (94) 99 Room Air 07/24/17 11:10 36.7 07/24/17 08:04 100 Room Air 07/24/17 07:50 Room Air 07/24/17 07:41 36.5 70 22 142/80 (100) 100 Room Air Notes Mental Status: alert / awake / arousable, participated in evaluation Pt Amnestic to Procedure: Yes Nausea / Vomiting: adequately controlled Pain: adequately controlled Airway Patency, RR, SpO2: stable & adequate BP & HR: stable & adequate Hydration State: stable & adequate Anesthetic Complications: no major complications apparent
--- NOTE | 2017-07-24 19:33 | DIAGNOSTIC IMAGING REPORT ---
L SHOULDER MIN 2 VIEWS ROUTINE CLINICAL HISTORY: Post shoulder surgery FRACTURE COMPARISON: 07/23/2017 DISCUSSION: There are postsurgical changes of a reverse total left shoulder arthroplasty. There is no dislocation. Overlying skin tuan and surgical drains are evident. There is air within the soft tissues consistent with recent surgery. IMPRESSION: Postsurgical changes of a reverse total left shoulder arthroplasty. Electronically signed by: Raul Dueñas M.D. 07/24/2017 7:32 PM Dictated Date/Time: 07/24/2017 7:31 PM
--- NOTE | 2017-07-24 19:34 | Anesthesiology Progress Note ---
Anesthesia Post Op Note Date & Time Jul 24, 2017 at 19:34 Vital Signs Pain Intensity: 0 Vital Signs Past 12 Hours Date Time Temp Pulse Resp B/P (MAP) Pulse Ox O2 Delivery O2 Flow Rate FiO2 07/24/17 19:25 66 20 151/66 96 Room Air 07/24/17 19:15 80 17 167/51 98 Room Air 07/24/17 19:05 73 24 175/66 97 Room Air 07/24/17 18:55 66 15 178/61 98 Room Air 07/24/17 18:46 36.0 64 12 152/69 100 Oxymask 10 07/24/17 11:48 36.8 72 18 142/70 (94) 99 Room Air 07/24/17 11:10 36.7 07/24/17 08:04 100 Room Air 07/24/17 07:50 Room Air 07/24/17 07:41 36.5 70 22 142/80 (100) 100 Room Air Notes Mental Status: alert / awake / arousable, participated in evaluation Pt Amnestic to Procedure: Yes Nausea / Vomiting: adequately controlled Pain: adequately controlled Airway Patency, RR, SpO2: stable & adequate BP & HR: stable & adequate Hydration State: stable & adequate Anesthetic Complications: no major complications apparent
[2017-07-24] MEDS: CEFAZOLIN IV 1,000 MG in SYRINGE 0 ML IV SCH (20:46)
[2017-07-24] MEDS: SIMVASTATIN 40 MG TAB PO SCH (20:52)
--- NOTE | 2017-07-24 20:59 | OPERATIVE REPORT ---
DATE OF OPERATION: 07/24/2017 INDICATION FOR PROCEDURE: The patient is a 77-year-old female who suffered a fall injuring her left shoulder. She has radiographs demonstrate a head splitting fracture with displacement of the greater tuberosity along with a fracture fragment which she has articular surface on the humeral head as verified by CT scan. There is also a neck fracture with varus alignment of the neck displaced medially and posteriorly on the shaft. The glenoid is intact. The patient has a large acromial spur with apparent acetabulization of the acromion suggestive of chronic rotator cuff tear. PREOPERATIVE DIAGNOSES: Head splitting fracture, left humeral head, chronic rotator cuff tear, anticipated. POSTOPERATIVE DIAGNOSES: Head splitting fracture, left proximal humerus, chronic rotator cuff tear, small vestigial biceps tendon. PROCEDURE: Fracture reversed total shoulder arthroplasty including repair of the tuberosities including bone grafting with humeral head autograft. SURGEON: Mike Leonard MD. SALES REPRESENTATIVE [employer]IES: Mateo Pearl PA-C. ANESTHESIA: Regional block and general. OPERATIVE PROCEDURE: The patient was taken to the operating room, anesthetized with regional block and general anesthetic. She was placed on a 40 degree beach chair position on the operating room table. Her head was placed on a foam headrest. She had protective eyewear placed. She was translated to left side of the bed with a towel roll under the medial border of her left scapula. She had TEDs and SCDs and a Alvarado catheter. Her shoulder was situated so that it could be manipulated off the bed as necessary for exposure. She had a large pendulous breast and moderately obese arm. The left shoulder was then sterilely prepped and draped with ChloraPrep. An anterior deltopectoral approach was performed. Slightly longer incision than typical shoulder replacement was performed for exposure due to her obesity and the fracture. The skin was incised longitudinally. The subcutaneous tissues were dissected down to the fascia. Deltopectoral interval was identified. There was no well-defined cephalic vein. Deltopectoral interval was dissected down to the strap muscles and conjoined tendon which was clearly identified. The clavipectoral fascia was divided at the lateral margin of the strap muscle and extended up to the CA ligament which was preserved. The upper centimeter of the pectoralis was released for inferior exposure. Biceps tendon was noted to be a vestigial small biceps tendon and only was about 3-4 mm wide at the most. This was tied down to the pectoralis tendon and the small strand of biceps proximally was followed up in the bicipital groove to identify that landmark otherwise resected. The fracture was such that the humeral shaft was displaced anteriorly. There was apex anterior angulation. There was medial and posterior displacement of the humeral head articular surface down along the neck into varus posterior alignment and the subscapularis internally rotated the major large head fragment and the posterior fragment along with the articular surface was retracted way posteriorly with the teres minor and some of the remaining infraspinatus. There was chronic crescent shaped posterior supraspinatus and anterior infraspinatus tear. At this time, we did some subperiosteal dissection around the shaft of the proximal fracture to fully identify the fracture pattern. Then I placed a self-retaining retractor in place. Then I placed a traction suture around the subscapularis tendon. Then I used a small osteotome to osteotomize the lesser tuberosity leaving a good chunk of bone for repair. This freed up the subscapularis from the remainder of the humeral head split fragment. I did release some of the rotator interval tissue down to the glenoid and then removed the large humeral head fragment. Removed some other small fragments and we saved any cancellous bone for bone grafting. Then we exposed the posterior fragment and placed another traction suture around the posterior fragment through the tendon tissue. There was some fragmented bone that we just saved for repair and then used a bone biter to remove the articular surface fragment from the posterior greater tuberosity. At this time, we irrigated out the joint. Then I went ahead and prepared the humeral shaft for the implant. I used the 20A fracture stem. The canal reamer was used for a 7 which was appropriate fit. Then, we put the 7 x 130 mm broach in position using a retroversion werner to place the humeral stem in appropriate version. Then the version was marked with electrocautery. Height of the prosthetic was measured and then the tension on the soft tissues assessed to make sure the height was satisfactory to place a glenoid sphere in position. Then the trial was removed. We went ahead and exposed the glenoid. I circumferentially resected the labrum and then we did electrocautery capsular release anterior inferiorly, posterior inferiorly on bone, staying right on bone on the glenoid. Then using a Aguilar elevator to free up the remainder of the capsule and release the triceps tendon. Then I used a curet to remove the articular cartilage on the glenoid, so we could get the 2 version of the glenoid. Then, I placed the guide for the drill and 10 degrees of inferior tilt drilled as central hole for the reamer, used the reamer for a 25 mm baseplate as she was a petite individual. After that was reamed satisfactorily, I went ahead and widened the central hole and then after irrigation with antibiotic solution with bacitracin, implanted the 25 glenoid baseplate from 20A. Then we used anterior and posterior compression screws of 23 and 18 mm and superior and inferior locking screws of 29 and 32 mm with excellent fixation. I used the fan reamer for the 36 standard glenoid sphere and after further irrigation and removal of all bone debris, we placed the 36 glenoid sphere in position, impacted it with a good press fit and then the screw was tightened and we assessed the stability to be stable. Then we did a trial reduction with the humeral trial stem being placed back in position. We used a +6 mm insert and that gave stable range of motion. Soft tissue tension on tuberosities was satisfactory. We then removed the trial, measured the length, placed a cement restrictor at the appropriate depth, irrigated out the humeral canal. I placed four #5 FiberWires around the greater tuberosity and then placed 2 drill holes into the shaft of the proximal humeral shaft. Then we placed 2 more #5 FiberWire sutures through the shaft for repair of the tuberosities later. Then after irrigating out the canals copiously, we placed a thrombin soaked tampon into the canal. Then vacuum mixed the Palacos cement. The hole in the humerus stem was bone grafted with the bone grafting device harvested from the humeral head. Then the stem was cemented placing in 20 degrees of retroversion and holding it until the cement cured and proximal cement around the bone graft hole and around the hydroxyapatite coating was cleared, so we could bone graft in that area. Once the cement cured, the 36 x +6 mm humeral insert was impacted into position. Then we bone grafted around the metaphysis of the prosthetic and then repaired the greater tuberosity first placing all 4 sutures around the neck of the prosthetic reducing the prosthetic to the glenoid sphere repairing the greater tuberosity over bone graft suturing those sutures first and then placing 2 more sutures around the lesser tuberosity and placing more bone graft and then repairing the lesser to the greater tuberosity with the other two #5 FiberWire sutures and then we used the other [address] [id number] sutures through the soft tissue of the subscap and infraspinatus repairing the tuberosities to the shaft. This completed the repair which was stable through 130 degrees of forward elevation, 90 degrees of abduction and 45 degrees of external rotation without any tension on the repair. After careful irrigation, holding the bone graft in place, the pectoralis was repaired with a [id number] #2 FiberWire suture and then 2 Hemovac drains were placed. Then the deltopectoral interval was closed with [id number] #1 Vicryl sutures. Subcutaneous tissues closed with interrupted 2-0 Vicryl sutures, skin closed with tuan. Sterile dressings were applied and sling immobilizer. The patient had about 100 mL of blood loss, tolerated the procedure satisfactorily. Mateo Pearl PA-C was senior it assistant. He functioned as senior it assistant during the entire procedure. He assisted in patient positioning, prepping, draping, arm positioning, soft tissue retraction, instrument management, assisted in some of the suture repair and he did perform the subcutaneous and skin closure and will participate in the postoperative care of the patient. I attest to the content of the Intraoperative Record and any orders documented therein. Any exception s are noted below.
[2017-07-25] MEDS: CEFAZOLIN IV 1,000 MG in SYRINGE 0 ML IV SCH (03:02)
[2017-07-25] MEDS: SODIUM CHLORIDE 0.9% 1000ML 1,000 ML IV SCH ×3 (03:02→16:27)
[2017-07-25 03:05] VITALS: BP 118/54; PULSE 94; TEMP 37.1; O2SAT 96
[2017-07-25 05:50] LABS: HEMATOCRIT 29.8 % (37-47); MEAN CELL VOLUME 90.9 fL (80-100); MEAN CORPUSCULAR HEMOGLOBIN 29.9 pg (25-34); MEAN CORPUSCULAR HGB CONC 32.9 g/dl (32-36); MEAN PLATELET VOLUME 10.4 fL (7.4-10.4); PLATELET COUNT 237 K/uL (130-400); RED BLOOD COUNT 3.28 M/uL (4.2-5.4); WHITE BLOOD COUNT 14.81 K/uL (4.8-10.8)
[2017-07-25] MEDS: ONDANSETRON INJ 2 MG/ML 2 ML VIAL IV PRN (06:00)
[2017-07-25] MEDS: OXYCODONE/ACETAMINOPHEN 5-325 TAB PO PRN ×4 (06:01→23:47)
[2017-07-25 06:21] LABS: BUN/CREATININE RATIO 10.1 (10-20); CALCIUM 8.8 mg/dl (8.5-10.1); CREATININE 0.77 mg/dl (0.60-1.20); POTASSIUM 3.7 mmol/L (3.5-5.1)
[2017-07-25 07:20] VITALS: BP 118/60; PULSE 89; TEMP 36.7; O2SAT 99
--- NOTE | 2017-07-25 07:35 | Orthopedic Progress Note ---
Orthopedic Progress Note Date of Service Jul 25, 2017. Subjective Post OP Day: 1 Reports: feeling well, pain controlled w PO medications, Denies: complaints, chest pain, SOB, nausea / vomiting, light headedness Objective N/V intact, capillary refill less than 2 sec., dressing C/D/I, A&O x3 Sling in tact, fingers mobile. Date Time Temp Pulse Resp B/P (MAP) Pulse Ox O2 Delivery O2 Flow Rate FiO2 07/25/17 07:20 36.7 89 16 118/60 (79) 99 Room Air 07/25/17 03:05 37.1 94 16 118/54 (75) 96 Room Air 07/24/17 23:00 36.5 91 16 131/66 (87) 99 Room Air 07/24/17 22:00 36.5 100 16 129/64 (85) 97 Room Air 07/24/17 21:00 36.4 88 16 157/68 (97) 98 Room Air 07/24/17 20:30 36.1 74 16 166/63 (97) 97 Room Air 07/24/17 20:05 Room Air 07/24/17 20:04 36.4 72 16 165/64 (97) 94 Room Air 07/24/17 20:04 94 Room Air 07/24/17 19:45 67 20 160/48 95 Room Air 07/24/17 19:35 36.1 78 22 161/55 95 Room Air 07/24/17 19:25 66 20 151/66 96 Room Air 07/24/17 19:15 80 17 167/51 98 Room Air 07/24/17 19:05 73 24 175/66 97 Room Air 07/24/17 18:55 66 15 178/61 98 Room Air 07/24/17 18:46 36.0 64 12 152/69 100 Oxymask 10 07/24/17 11:48 36.8 72 18 142/70 (94) 99 Room Air 07/24/17 11:10 36.7 07/24/17 08:04 100 Room Air 07/24/17 07:50 Room Air 07/24/17 07:41 36.5 70 22 142/80 (100) 100 Room Air Laboratory Results 24 Hours: Test 07/25/17 05:37 Hematocrit 29.8 % Hemoglobin 9.8 g/dL Assessment & Plan Assessment: POD #1, Fracture Reversed TSA, Repair of Tuberosities w Bone Grafting Plan: LIMITED PT AT THIS POINT PAIN MANAGEMENT- PERCOCET/MORPHINE. D/C PLANS- HOME LIKELY TOMORROW PER MEDICINE Inhouse Planning Pain Management: Percocet, Morphine DVT Prophylaxis: SCDs Discharge Planning Discharge Planning: home
[2017-07-25] MEDS: PANTOprazole SOD 40 MG TAB PO SCH (08:39)
[2017-07-25] MEDS: DOCUSATE SODIUM 100 MG CAP PO SCH ×2 (08:39→21:18)
[2017-07-25] MEDS: MULTIVITAMIN TAB PO SCH (08:40)
--- NOTE | 2017-07-25 08:50 | Anesthesiology Progress Note ---
Anesthesia Post Op Note Date & Time Jul 25, 2017 at 08:50 Vital Signs Vital Signs Past 12 Hours Date Time Temp Pulse Resp B/P (MAP) Pulse Ox O2 Delivery O2 Flow Rate FiO2 07/25/17 07:20 36.7 89 16 118/60 (79) 99 Room Air 07/25/17 03:05 37.1 94 16 118/54 (75) 96 Room Air 07/24/17 23:00 36.5 91 16 131/66 (87) 99 Room Air 07/24/17 22:00 36.5 100 16 129/64 (85) 97 Room Air 07/24/17 21:00 36.4 88 16 157/68 (97) 98 Room Air Notes Mental Status: alert / awake / arousable, participated in evaluation Pt Amnestic to Procedure: Yes Nausea / Vomiting: adequately controlled Pain: adequately controlled Airway Patency, RR, SpO2: stable & adequate BP & HR: stable & adequate Hydration State: stable & adequate Neuraxial Anesthesia: sensory block resolved Anesthetic Complications: no major complications apparent
[2017-07-25] MEDS: METOCLOPRAMIDE HCL INJ 5 MG/ML 2 ML VIAL IV PRN (10:50)
[2017-07-25 15:42] VITALS: BP 147/68; PULSE 99; TEMP 36.9; O2SAT 93
--- NOTE | 2017-07-25 18:11 | Hospitalist Progress Note ---
Hospitalist Progress Note Date of Service Jul 25, 2017. Subjective Pt evaluation today including: conversation w/ patient, conversation w/ family , physical exam Voiding: no voiding problems Pt doing well, pain controlled, no N/V, no CP or SOB, no headaches, not lightheaded. Moving bowels All Other Systems: Reviewed and Negative Objective Vital Signs Date Time Temp Pulse Resp B/P (MAP) Pulse Ox O2 Delivery O2 Flow Rate FiO2 07/25/17 15:42 36.9 99 17 147/68 (94) 93 Room Air 07/25/17 08:15 Room Air 07/25/17 07:20 36.7 89 16 118/60 (79) 99 Room Air 07/25/17 03:05 37.1 94 16 118/54 (75) 96 Room Air 07/24/17 23:00 36.5 91 16 131/66 (87) 99 Room Air 07/24/17 22:00 36.5 100 16 129/64 (85) 97 Room Air 07/24/17 21:00 36.4 88 16 157/68 (97) 98 Room Air 07/24/17 20:30 36.1 74 16 166/63 (97) 97 Room Air 07/24/17 20:05 Room Air 07/24/17 20:04 36.4 72 16 165/64 (97) 94 Room Air 07/24/17 20:04 94 Room Air 07/24/17 19:45 67 20 160/48 95 Room Air 07/24/17 19:35 36.1 78 22 161/55 95 Room Air 07/24/17 19:25 66 20 151/66 96 Room Air 07/24/17 19:15 80 17 167/51 98 Room Air 07/24/17 19:05 73 24 175/66 97 Room Air 07/24/17 18:55 66 15 178/61 98 Room Air 07/24/17 18:46 36.0 64 12 152/69 100 Oxymask 10 Physical Exam General Appearance: WD/WN, no apparent distress Eyes: normal inspection, sclerae normal ENT: hearing grossly normal Neck: trachea midline Respiratory/Chest: lungs clear, normal breath sounds, no respiratory distress, no accessory muscle use Cardiovascular: regular rate, rhythm, no edema, no gallop, no murmur Abdomen: normal bowel sounds, non tender, soft, no organomegaly Extremities: normal inspection (except LUE in sling), no pedal edema, no calf tenderness Neurologic/Psychiatric: alert, normal mood/affect, oriented x 3 Skin: normal color, warm/dry, no rash Laboratory Results Last 24 Hours Test 07/25/17 05:37 White Blood Count 14.81 K/uL Red Blood Count 3.28 M/uL Hemoglobin 9.8 g/dL Hematocrit 29.8 % Mean Corpuscular Volume 90.9 fL Mean Corpuscular Hemoglobin 29.9 pg Mean Corpuscular Hemoglobin Concent 32.9 g/dl RDW Standard Deviation 48.5 fL RDW Coefficient of Variation 14.6 % Platelet Count 237 K/uL Mean Platelet Volume 10.4 fL Sodium Level 134 mmol/L Potassium Level 3.7 mmol/L Chloride Level 101 mmol/L Carbon Dioxide Level 27 mmol/L Anion Gap 6.0 mmol/L Blood Urea Nitrogen 8 mg/dl Creatinine 0.77 mg/dl Est Creatinine Clear Calc Drug Dose 52.4 ml/min Estimated GFR () 86.3 Estimated GFR (Non- 74.5 BUN/Creatinine Ratio 10.1 Random Glucose 124 mg/dl Calcium Level 8.8 mg/dl Assessment and Plan Patient is a 77 y/o female, with PMHx of heart murmur, HTN, HLD, and PUD, who was admitted by orthopedics service due to a fall resulting in L proximal humerus fracture. The hospitalist team was consulted for preop clearance. L proximal humerus fracture: POD#1 left TSA, doing well post-op - Management as per orthopedics - Leukocytosis, likely reactive- RESOLVED- no s/s of infection, UA negative - Vitamin D level- 33.4 - pain control, bowel regimen -f/u Orthopedics post-op as scheduled Acute blood loss anemia from fracture-hgb dropped from 12 to 9 post-op -no need for transfusion -follow CBC Hyponatremia at 130-secondary to dehydration. Now improved with IVFs to 134 - dc IVFs HTN: BPs rising - ok to restart Lisinopril 20 mg daily in the AM - Hydralazine 10 mg IV PRN sbp >180 or dbp >100 HLD: Continue Zocor 40 mg daily GI prophylaxis: Protonix 40 mg daily DVT prophylaxis: SCDs Code Status: LEVEL I, FULL Dispo: Discharge as per primary team Thank you for this consultation. We will continue to follow throughout hospital stay.
[2017-07-25] MEDS: SIMVASTATIN 40 MG TAB PO SCH (21:18)
[2017-07-25 23:12] VITALS: BP 123/64; PULSE 98; TEMP 36.9; O2SAT 94
[2017-07-26 06:32] LABS: HEMATOCRIT 27.4 % (37-47); MEAN CELL VOLUME 91.9 fL (80-100); MEAN CORPUSCULAR HEMOGLOBIN 30.9 pg (25-34); MEAN CORPUSCULAR HGB CONC 33.6 g/dl (32-36); PLATELET COUNT 215 K/uL (130-400); RED BLOOD COUNT 2.98 M/uL (4.2-5.4); WHITE BLOOD COUNT 11.95 K/uL (4.8-10.8)
[2017-07-26 07:08] LABS: BLOOD UREA NITROGEN 8 mg/dl (7-18); CALCIUM 8.5 mg/dl (8.5-10.1); CARBON DIOXIDE 28 mmol/L (21-32); CHLORIDE 101 mmol/L (98-107); CREATININE 0.47 mg/dl (0.60-1.20); GLUCOSE 80 mg/dl (70-99); SODIUM 134 mmol/L (136-145)
--- NOTE | 2017-07-26 07:13 | Orthopedic Progress Note ---
Orthopedic Progress Note Date of Service Jul 26, 2017. Subjective Post OP Day: 2 Reports: feeling well, pain controlled w PO medications, Denies: complaints, chest pain, SOB, nausea / vomiting, light headedness, calf pain Additional Notes: PRP pending this AM Objective N/V intact, capillary refill less than 2 sec., incision C/D/I, A&O x3 Sling in tact, fingers mobile. Date Time Temp Pulse Resp B/P (MAP) Pulse Ox O2 Delivery O2 Flow Rate FiO2 07/25/17 23:48 Room Air 07/25/17 23:12 36.9 98 20 123/64 (83) 94 Room Air 07/25/17 16:09 Room Air 07/25/17 15:42 36.9 99 17 147/68 (94) 93 Room Air 07/25/17 08:15 Room Air 07/25/17 07:20 36.7 89 16 118/60 (79) 99 Room Air Laboratory Results 24 Hours: Test 07/26/17 05:51 Hematocrit 27.4 % Hemoglobin 9.2 g/dL Assessment & Plan Assessment: POD #2, Fracture Reversed TSA, Repair of Tuberosities w Bone Grafting Plan: LIMITED PT AT THIS POINT PAIN MANAGEMENT- PERCOCET D/C PLANS- HOME TODAY AFTER PT, NO FORMAL PT NEEDED AFTER DISCHARGE, PATIENT WILL DO HEP TAUGHT PER MEDICINE Inhouse Planning Pain Management: Percocet DVT Prophylaxis: SCDs Discharge Planning Discharge Planning: home Pain Management: Percocet
[2017-07-26] MEDS ORDERED: ONDA8TAB6 PO (07:15)
[2017-07-26] MEDS ORDERED: OXYC-57 PO (07:15)
--- NOTE | 2017-07-26 07:19 | Discharge Instructions ---
Discharge Instructions Date of Service Jul 26, 2017. Admission Reason for Admission: Humerus Head Fracture Discharge Discharge Diagnosis / Problem: LEFT REVERSED FRACTURE TOTAL SHOULDER REPLACEMENT Discharge Goals Goal(s): Improve function Activity Recommendations Activity Limitations: as noted below . Instructions / Follow-Up Instructions / Follow-Up SLING AT ALL TIMES MAY LOOSEN SLING TO DO ELBOW MOTION, SHRUGS TWO TO THREE TIMES DAILY... NO SHOULDER MOTION. DAILY STERILE DRESSING CHANGES TO SHOULDER UNTIL FOLLOW UP IN OFFICE. MAY SHOWER BRIEFLY OVER SHOULDER INCISION, DO NOT SUBMERGE UNDERWATER. NO DRIVING OR LIFTING WITH LEFT ARM. FOLLOW UP WITH DR. MAHAN'S OFFICE 12-14 DAYS POST OP, CALL [phone] FOR APPT. Current Hospital Diet Patient's current hospital diet: AHA Diet (Heart Healthy) Discharge Diet Recommended Diet: Regular Diet Procedures Procedures Performed: Left Reversed Total Shoulder Replacement, Repair of Tuberosity with Bonegraft Autograft-Left Shoulder Pending Studies Studies pending at discharge: no Medical Emergencies . Who to Call and When: Medical Emergencies: If at any time you feel your situation is an emergency, please call 911 immediately. . Non-Emergent Contact Non-Emergency issues call your: Primary Care Provider . "Provider Documentation" section prepared by Tom Sosa. . VTE Core Measure Inpt VTE Proph given/why not?: SCD's [place] Drug Monitoring Program Search Results: patient reviewed within database, no issues identified
[2017-07-26 07:34] VITALS: BP 140/80; PULSE 92; TEMP 36.7; O2SAT 95
[2017-07-26 08:11] VITALS: O2SAT 95
[2017-07-26] MEDS ORDERED: LISINOPRIL 20 MG TAB PO SCH (09:00)
[2017-07-26] MEDS: PANTOprazole SOD 40 MG TAB PO SCH (09:03)
[2017-07-26] MEDS: DOCUSATE SODIUM 100 MG CAP PO SCH (09:03)
[2017-07-26] MEDS: MULTIVITAMIN TAB PO SCH (09:03)
[2017-07-26] MEDS: OXYCODONE/ACETAMINOPHEN 5-325 TAB PO PRN (09:04)
[2017-07-26 09:56] VITALS: BP 140/80; PULSE 92; TEMP 36.7; O2SAT 95
--- NOTE | 2017-07-26 10:05 | Hospitalist Progress Note ---
Hospitalist Progress Note Date of Service Jul 26, 2017. (Carrie Agosto ., JENNYC) Subjective Pt evaluation today including: conversation w/ patient, physical exam, lab review, review of inpatient medication list Voiding: no voiding problems Patient resting in bed. Pain is well controlled. Eating and drinking OK. +flatus, last BM on 07/24. Patient denies any fever, chills, sweats, lightheadedness, dizziness, vision changes, CP, palpitations, edema, SOB, wheezing, cough, abdominal pain, nausea, vomiting, diarrhea, urinary symptoms, melena, numbness/tingling, weakness, anxiety/depression, active bleeding, or new skin discoloration/changes. (Carrie Agosto ., JENNYC) Medications Current Inpatient Medications Medications (Trade) Dose Ordered Sig/Alex Route Start Time Stop Time Status Last Admin Dose Admin Oxycodone/ Acetaminophen (Percocet 5-325mg Tab) `1-2 TABS FOR PAIN `1 TAB... Q4H PRN PO 07/23/17 12:30 08/06/17 12:29 07/26/17 09:04 2 TAB Zolpidem Tartrate (Ambien Tab) 5 mg HSZ PRN PO 07/23/17 12:30 08/22/17 12:29 Metoclopramide HCl (Reglan Inj) 10 mg Q6H PRN IV 07/23/17 12:30 08/22/17 12:29 07/25/17 10:50 10 MG Ondansetron HCl (Zofran Inj) 4 mg Q6H PRN IV 07/23/17 12:30 08/22/17 12:29 07/25/17 06:00 4 MG Docusate Sodium (coLACE CAP) 100 mg BID PO 07/23/17 21:00 08/22/17 20:59 07/26/17 09:03 100 MG Pantoprazole Sodium (Protonix Tab) 40 mg QAM PO 07/24/17 09:00 08/23/17 08:59 07/26/17 09:03 40 MG Magnesium Hydroxide (Milk Of Magnesia Susp) 30 ml Q6H PRN PO 07/23/17 12:30 08/22/17 12:29 Simvastatin (Zocor Tab) 40 mg QPM PO 07/23/17 21:00 08/22/17 20:59 07/25/17 21:18 40 MG Hydralazine HCl (HydrALAZINE INJ) 10 mg Q6H PRN IV. 07/23/17 13:45 08/22/17 13:44 Morphine Sulfate (MoRPHine SULFATE INJ) 1 mg Q3H PRN IV 07/24/17 10:00 08/07/17 09:59 07/24/17 10:05 1 MG Morphine Sulfate (MoRPHine SULFATE INJ) 2 mg Q3H PRN IV 07/24/17 11:00 08/07/17 10:59 07/25/17 09:17 2 MG Al Hydroxide/Mg Hydroxide (Maalox Susp) 30 ml Q4H PRN PO 07/24/17 19:00 08/23/17 18:59 Multivitamins (Multivitamin Tab) 1 tab DAILY PO 07/25/17 09:00 08/24/17 08:59 07/26/17 09:03 1 TAB Lisinopril (Zestril Tab) 20 mg QAM PO 07/26/17 09:00 08/25/17 08:59 07/26/17 09:06 20 MG (Carrie Agosto, PA-C) Objective Vital Signs Date Time Temp Pulse Resp B/P (MAP) Pulse Ox O2 Delivery O2 Flow Rate FiO2 07/26/17 09:56 36.7 92 21 95 Room Air 07/26/17 08:11 95 Room Air 07/26/17 07:35 Room Air 07/26/17 07:34 36.7 92 21 140/80 (100) 95 Room Air 07/25/17 23:48 Room Air 07/25/17 23:12 36.9 98 20 123/64 (83) 94 Room Air 07/25/17 16:09 Room Air 07/25/17 15:42 36.9 99 17 147/68 (94) 93 Room Air (Carrie Agosto, PA-C) Physical Exam General Appearance: no apparent distress Eyes: normal inspection, PERRL ENT: hearing grossly normal Neck: supple Respiratory/Chest: lungs clear, no respiratory distress, no accessory muscle use Cardiovascular: regular rate, rhythm, + systolic murmur Abdomen: normal bowel sounds, non tender, soft Extremities: no pedal edema, no calf tenderness, + pertinent finding (L arm in sling ) Neurologic/Psychiatric: alert, normal mood/affect, oriented x 3 Skin: normal color, warm/dry, no rash (Carrie Agosto ., PA-C) Laboratory Results Last 24 Hours Test 07/26/17 05:51 07/26/17 07:14 White Blood Count 11.95 K/uL Red Blood Count 2.98 M/uL Hemoglobin 9.2 g/dL Hematocrit 27.4 % Mean Corpuscular Volume 91.9 fL Mean Corpuscular Hemoglobin 30.9 pg Mean Corpuscular Hemoglobin Concent 33.6 g/dl RDW Standard Deviation 49.8 fL RDW Coefficient of Variation 14.8 % Platelet Count 215 K/uL Mean Platelet Volume 11.0 fL Sodium Level 134 mmol/L Potassium Level mmol/L 3.9 mmol/L Chloride Level 101 mmol/L Carbon Dioxide Level 28 mmol/L Anion Gap 5.0 mmol/L Blood Urea Nitrogen 8 mg/dl Creatinine 0.47 mg/dl Est Creatinine Clear Calc Drug Dose 85.8 ml/min Estimated GFR () 110.4 Estimated GFR (Non- 95.3 BUN/Creatinine Ratio 18.0 Random Glucose 80 mg/dl Calcium Level 8.5 mg/dl (Carrie Agosto ., PA-C) Assessment and Plan Patient is a 77 y/o female, with PMHx of heart murmur, HTN, HLD, and PUD, who was admitted by orthopedics service due to a fall resulting in L proximal humerus fracture. The hospitalist team was consulted for preop clearance. L proximal humerus fracture s/p shoulder replacement by Dr. Leonard on 07/24: - Surgical management, pain management, PT/OT, and DVT prophylaxis as per primary team - Leukocytosis, likely reactive- RESOLVED- no s/s of infection, UA negative - Vitamin D level- 33.4 - f/u w/ orthopedics as instructed Acute blood loss anemia, secondary to fracture/postop- STABLE Hyponatremia at 130, ?secondary to dehydration- IMPROVED to 134: - Gentle hydration w/ IVF @ 75 ml/hr- d/c'd - Follow PRP HTN: - Held Lisinopril 20 mg daily pending postop PRP- STABLE- resumed - Hydralazine 10 mg IV PRN sbp >180 or dbp >100 HLD: Continue Zocor 40 mg daily GI prophylaxis: Protonix 40 mg daily DVT prophylaxis: As per surgical team Code Status: LEVEL I, FULL Dispo: Discharge as per primary team- medically stable for discharge (Carrie Agosto, CANDIDO) History Physician Ski In[employer] Supervision Note: I did not see the patient today-she left before I could see her. Discussed with MODESTA Agosto and agree with findings and plan as documented in the note. Any exceptions or clarifications are listed here: None Documented By: Ghazal Gilbert (Ghazal Gilbert MD) Assessment/Plan Patient is a 77 y/o female, with PMHx of heart murmur, HTN, HLD, and PUD, who was admitted by orthopedics service due to a fall resulting in L proximal humerus fracture. The hospitalist team was consulted for preop clearance. L proximal humerus fracture: POD#1 left TSA, doing well post-op - Management as per orthopedics - Leukocytosis, likely reactive- RESOLVED- no s/s of infection, UA negative - Vitamin D level- 33.4 - pain control, bowel regimen -f/u Orthopedics post-op as scheduled Acute blood loss anemia from fracture-hgb dropped from 12 to 9 post-op -no need for transfusion -follow CBC Hyponatremia at 130-secondary to dehydration. Now improved with IVFs to 134 - dc IVFs HTN: BPs rising - ok to restart Lisinopril 20 mg daily in the AM - Hydralazine 10 mg IV PRN sbp >180 or dbp >100 HLD: Continue Zocor 40 mg daily GI prophylaxis: Protonix 40 mg daily DVT prophylaxis: SCDs Code Status: LEVEL I, FULL Dispo: Discharge as per primary team Thank you for this consultation. We will continue to follow throughout hospital stay. (Ghazal Gilbert MD)
== END 2017-07-26 12:34 | disposition home or self-care (01) | DRG 483 ==
LOC: C.EDB 10:10 → C.3E 12:32 → ENRESERV 12:51
PROVIDERS: ADMIT Orthopaedic Surgery Sports Medicine; ATTEND Orthopaedic Surgery Sports Medicine
PROC: 0PUG07Z Supplement Left Humeral Shaft with Autologous Tissue Substitute, Open Approach (ICD-10-PCS; principal; 2017-07-24 11:00)
PROC: 0RRK00Z Replacement of Left Shoulder Joint with Reverse Ball and Socket Synthetic Substitute, Open Approach (ICD-10-PCS; principal; 2017-07-24 11:00)
DX: S42.292A Other displaced fracture of upper end of left humerus, initial encounter for closed fracture (principal); D62 Acute posthemorrhagic anemia; E87.1 Hypo-osmolality and hyponatremia; M75.102 Unspecified rotator cuff tear or rupture of left shoulder, not specified as traumatic; I10 Essential (primary) hypertension; E78.5 Hyperlipidemia, unspecified; Z79.899 Other long term (current) drug therapy; Z82.49 Family history of ischemic heart disease and other diseases of the circulatory system; Z82.79 Family history of other congenital malformations, deformations and chromosomal abnormalities; Z87.891 Personal history of nicotine dependence; W18.09XA Striking against other object with subsequent fall, initial encounter; Y92.009 Unspecified place in unspecified non-institutional (private) residence as the place of occurrence of the external cause; Y99.8 Other external cause status

== ENCOUNTER → 2017-08-03 | Outpatient (CLI) | payer OTHER ==
[~2017-08-03] MED LIST changes: -ACET-1311 PO; -DIPH-437 PO; -LISI-461 PO; +LISI-725 PO; +MULT-506 PO; +ONDA8TAB6 PO; +OXYC-57 PO; +PSYL48.59 PO; -PSYL55.43 PO
[2017-08-03 17:24] LABS: HEMATOCRIT 28.4 % (37-47); MEAN CELL VOLUME 92.2 fL (80-100); MEAN CORPUSCULAR HEMOGLOBIN 29.9 pg (25-34); MEAN CORPUSCULAR HGB CONC 32.4 g/dl (32-36); PLATELET COUNT 497 K/uL (130-400); RED BLOOD COUNT 3.08 M/uL (4.2-5.4); WHITE BLOOD COUNT 8.37 K/uL (4.8-10.8)
[2017-08-03 17:39] LABS: FERRITIN 358.9 ng/ml (8.0-388.0)
== END | disposition home or self-care (01) ==
LOC: C.LABBFT 14:33
PROVIDERS: ATTEND Internal Medicine
DX: D64.9 Anemia, unspecified (principal)

== ENCOUNTER → 2017-08-18 | Outpatient (CLI) | payer OTHER ==
[~2017-08-18] MED LIST changes: +ONDA-170 PO; -ONDA8TAB6 PO
[2017-08-18 12:20] LABS: BASO % 0.5 %; BASO ABS # 0.03 K/uL (0-0.2); EOS % 0.9 %; EOS ABS # 0.06 K/uL (0-0.5); HEMOGLOBIN 10.6 g/dL (12.0-16.0); LYMPH % 16.1 %; LYMPH ABS # 1.04 K/uL (1.2-3.4); MEAN CELL VOLUME 94.6 fL (80-100); MEAN CORPUSCULAR HEMOGLOBIN 30.4 pg (25-34); MEAN CORPUSCULAR HGB CONC 32.1 g/dl (32-36); MEAN PLATELET VOLUME 10.9 fL (7.4-10.4); MONO % 7.1 %; MONO ABS # 0.46 K/uL (0.11-0.59); NEUT % 75.4 %; NEUT ABS # 4.85 K/uL (1.4-6.5); PLATELET COUNT 338 K/uL (130-400); RED CELL DISTRIBUTION WIDTH CV 15.9 % (11.5-14.5); RED CELL DISTRIBUTION WIDTH SD 54.7 fL (36.4-46.3); WHITE BLOOD COUNT 6.44 K/uL (4.8-10.8)
[2017-08-18 12:52] LABS: ALBUMIN 3.7 gm/dl (3.4-5.0); ALKALINE PHOSPHATASE 94 U/L (45-117); ALT/SGPT 16 U/L (12-78); AST/SGOT 13 U/L (15-37); BLOOD UREA NITROGEN 10 mg/dl (7-18); CALCIUM 9.3 mg/dl (8.5-10.1); CARBON DIOXIDE 29 mmol/L (21-32); CHOLESTEROL 162 mg/dl (0-200); CREATININE 0.68 mg/dl (0.60-1.20); GLUCOSE 130 mg/dl (70-99); POTASSIUM 4.1 mmol/L (3.5-5.1); SODIUM 135 mmol/L (136-145); TOTAL PROTEIN 6.9 gm/dl (6.4-8.2)
[2017-08-18 12:54] LABS: LDL CHOLESTEROL CALCULATED 65 mg/dl
== END | disposition home or self-care (01) ==
LOC: C.LABBFT 08:26
PROVIDERS: ATTEND Internal Medicine
DX: D64.9 Anemia, unspecified (principal); I10 Essential (primary) hypertension; E78.00 Pure hypercholesterolemia, unspecified

== ENCOUNTER → 2018-03-26 | Outpatient (CLI) | payer OTHER ==
[~2018-03-26] MED LIST changes: -ONDA-170 PO
[2018-03-26 17:28] LABS: HEMATOCRIT 38.8 % (37-47); MEAN CELL VOLUME 91.1 fL (80-100); MEAN CORPUSCULAR HEMOGLOBIN 30.5 pg (25-34); MEAN CORPUSCULAR HGB CONC 33.5 g/dl (32-36); MEAN PLATELET VOLUME 11.5 fL (7.4-10.4); PLATELET COUNT 252 K/uL (130-400); RED CELL DISTRIBUTION WIDTH CV 13.7 % (11.5-14.5); RED CELL DISTRIBUTION WIDTH SD 45.3 fL (36.4-46.3); WHITE BLOOD COUNT 8.26 K/uL (4.8-10.8)
[2018-03-26 18:03] LABS: ALBUMIN 4.4 gm/dl (3.4-5.0); ALKALINE PHOSPHATASE 88 U/L (45-117); ALT/SGPT 21 U/L (12-78); AST/SGOT 20 U/L (15-37); BLOOD UREA NITROGEN 11 mg/dl (7-18); CALCIUM 9.7 mg/dl (8.5-10.1); CARBON DIOXIDE 25 mmol/L (21-32); CREATININE 0.66 mg/dl (0.60-1.20); GLUCOSE 92 mg/dl (70-99); POTASSIUM 4.5 mmol/L (3.5-5.1); SODIUM 130 mmol/L (136-145); TOTAL PROTEIN 7.7 gm/dl (6.4-8.2)
== END | disposition home or self-care (01) ==
LOC: C.LABBFT 12:00
PROVIDERS: ATTEND Physician Assistant Medical
DX: E78.00 Pure hypercholesterolemia, unspecified (principal); I10 Essential (primary) hypertension; D64.9 Anemia, unspecified